=== PATIENT | female | born 1955 | race Caucasian/White ===

== ENCOUNTER 2019-08-15 15:14 | Inpatient (IN) ==
[2019-08-15] MEDS ORDERED: SODIUM CHLORIDE 0.9% 1000ML 1,000 ML IV SCH (15:45)
[2019-08-15 16:28] LABS: Basophils # (auto) 0.03 K/uL (0-0.2); Basophils % (auto) 0.3 %; Eosinophils # (auto) 0.15 K/uL (0-0.5); Eosinophils % (auto) 1.3 %; Hematocrit (blood only) 41.3 % (37-47); Hemoglobin 13.6 g/dL (12.0-16.0); Immature Granulocytes # (auto) 0.04 K/uL (0.00-0.02); Immature Granulocytes % (auto) 0.4 %; Lymphocytes # (auto) 0.77 K/uL (1.2-3.4); Lymphocytes % (auto) 6.7 %; Mean Corpuscular Hemoglobin 32.3 pg (25-34); Mean Corpuscular Hgb Conc 32.9 g/dL (32-36); Mean Corpuscular Volume 98.1 fL (80-100); Mean Platelet Volume 11.9 fL (7.4-10.4); Monocytes # (auto) 0.62 K/uL (0.11-0.59); Monocytes % (auto) 5.4 %; Neutrophils % (auto) 85.9 %; Platelet Count 192 K/uL (130-400); RDW Coefficient of Variation 14.1 % (11.5-14.5); RDW Standard Deviation 50.6 fL (36.4-46.3); Red Blood Count 4.21 M/uL (4.2-5.4); White Blood Count 11.41 K/uL (4.8-10.8)
--- NOTE | 2019-08-15 16:53 | Emergency Department Note ---
History of Present Illness General Chief complaint: Abnormal Labs/Diagnostic Testing Stated complaint: ABNORMAL LAB, UNABLE TO AMBULATE Time Seen by Provider: 08/15/19 15:41 Source: patient and RN notes reviewed Mode of arrival: EMS Limitations: altered mental status History of Present Illness Provider complaint: Acute renal failure This is a 63-year-old female who presents to the ED with a chief complaint of elevated creatinine. The patient was sent from the [facility]. She was reportedly discharged from the [facility] from a psychiatric standpoint today. The patient was transported here by ambulance as the patient was found to have acute renal failure with a creatinine of 3.94. This blood work was done yesterday. The patient's BUN was 91 yesterday. On the fourth of this month, 13 days ago, the patient's BUN was 40 and creatinine was 1.27. The patient was at the [facility] and was taking Risperdal, Depakote and atorvastatin. She does have a psych history as well as history of hypertension and dyslipidemia. The patient is confused on my exam. She was unable to provide any history. The patient does not even know where she lives. Home Medications Home Medications Medication Instructions Recorded Confirmed Type atorvastatin 20 mg PO HS 08/15/19 08/15/19 History divalproex [Depakote] 500 mg PO BID 08/15/19 08/15/19 History risperidone [Risperdal] 1 mg PO BID 08/15/19 08/15/19 History risperidone [Risperdal] 2 mg PO HS 08/15/19 08/15/19 History Allergies Allergy/AdvReac Type Severity Reaction Status Date / Time RED DYE Allergy Unknown Uncoded 08/15/19 16:48 Past Med/Surg History Social History Feels Safe at Home: Yes Smoking Status: Never smoker Review of Systems Unobtainable due to cognitive status Physical Exam Vital Signs Vital Signs - 24 hr 08/15/19 15:18 08/15/19 16:03 Temperature 36.3 C L Temperature Source Oral Pulse Rate 84 Respiratory Rate 18 Respiratory Effort / Characteristics Non-Labored Respiratory Depth Normal Blood Pressure 122/45 L Blood Pressure Mean 70 Blood Pressure Position Lying Pulse Oximetry 98 Oxygen Delivery Method Room Air Room Air Sepsis Recent Fever Within 48 Hours No Sepsis Action Taken by Nursing No Action Required CONSTITUTIONAL/VITAL SIGNS: Reviewed / noted above. GENERAL: Non-toxic in appearance. No acute distress. INTEGUMENTARY: Warm, dry, and Horatio. HEAD: Normocephalic. EYES: without scleral icterus or trauma. ENT/OROPHARYNX: clear and moist. LYMPHADENOPATHY/NECK: Is supple without lymphadenopathy or meningismus. RESPIRATORY: Lungs clear and equal. CARDIOVASCULAR: Regular rate and rhythm. GI/ABDOMEN: Soft and nontender. No organomegaly or pulsatile mass. No rebound or guarding. Normal bowel sounds. EXTREMITIES: Warm and well perfused. BACK: No CVA tenderness. NEUROLOGICAL: The patient is confused and does not follow commands. She is unable to answer basic questions or provide any history. She does move all 4 extremities. PSYCHIATRIC: normal affect. MUSCULOSKELETAL: Normally developed with good muscle tone. TRIAGE NURSING DOCUMENTATION REVIEWED. Course Administered Medications Discontinued Medications Sodium Chloride (Nss 1000ml) 1,000 mls @ 999 mls/hr IV .Q1H1M BIRGIT Stop: 08/15/19 16:45 Last Admin: 08/15/19 16:12 Dose: 999 mls/hr Documented by: [id number] Medical Decision Making Differential Diagnosis Differential includes acute coronary syndrome, myocardial infarction, CVA, TIA, anemia, infection, pneumonia, UTI, pyelonephritis, poor nutrition, dehydration, electrolyte disturbance,hypoglycemia. Medical Records Attestation: I reviewed the patient's medical records. Home Medications Current Medication List: was personally reviewed by me Laboratory Data Attestation: I reviewed the patient's lab results. Result diagrams: 08/15/19 16:11 08/15/19 16:11 Lab Results 08/15/19 08/15/19 08/15/19 Range/Units 16:11 16:11 16:11 WBC 11.41 H (4.8-10.8) K/uL RBC 4.21 (4.2-5.4) M/uL Hgb 13.6 (12.0-16.0) g/dL Hct 41.3 (37-47) % MCV 98.1 (80-100) fL MCH 32.3 (25-34) pg MCHC 32.9 (32-36) g/dL RDW Std Deviation 50.6 H (36.4-46.3) fL RDW Coeff of Phillip 14.1 (11.5-14.5) % Plt Count 192 (130-400) K/uL MPV 11.9 H (7.4-10.4) fL Immature Gran % (Auto) 0.4 % Neut % (Auto) 85.9 % Lymph % (Auto) 6.7 % Rabun % (Auto) 5.4 % Eos % (Auto) 1.3 % Baso % (Auto) 0.3 % Immature Gran # (Auto) 0.04 H (0.00-0.02) K/uL Neut # (Auto) 9.80 H (1.4-6.5) K/uL Lymph # (Auto) 0.77 L (1.2-3.4) K/uL Rabun # (Auto) 0.62 H (0.11-0.59) K/uL Eos # (Auto) 0.15 (0-0.5) K/uL Baso # (Auto) 0.03 (0-0.2) K/uL Sodium 144 (136-145) mmol/L Potassium 4.1 (3.5-5.1) mmol/L Chloride 111 H (98-107) mmol/L Carbon Dioxide 25 (21-32) mmol/L Anion Gap 8.0 (3-11) BUN 115 H (7-18) mg/dl Creatinine 4.82 H* (0.6-1.2) mg/dl Est Cr Clr Drug Dosing Not Reportable Est GFR ( Amer) 10.4 Est GFR (Non-Af Amer) 9.0 BUN/Creatinine Ratio 23.9 H (10-20) Glucose 100 H (70-99) mg/dl Calcium 10.8 H (8.5-10.1) mg/dl Magnesium 2.6 H (1.8-2.4) mg/dl Total Bilirubin 0.4 (0.2-1) mg/dl AST 17 (15-37) U/L ALT 35 (12-78) U/L Alkaline Phosphatase 161 H (45-117) U/L Total Creatine Kinase 55 (26-192) U/L Total Protein 7.5 (6.4-8.2) gm/dl Albumin 3.7 (3.4-5.0) gm/dl Globulin 3.8 (2.5-4.0) gm/dl Albumin/Globulin Ratio 1.0 (0.9-2) TSH 3.210 (0.300-4.500) uIu/ml Valproic Acid 41 L (50-100) mcg/ml Imaging Data Attestation: I personally reviewed and interpreted this imaging study as follows: My Impression: CT scan of the brain was negative for acute intracranial bleed. Chest x-ray: No acute disease Radiologist's Impression: CT scan of the brain:1. Linear lytic defect of the right temporal fossa. 2. Study is brain is otherwise unremarkable. ECG Data Attestation: I personally reviewed and interpreted this ECG as follows: Indication: + weakness Rate (beats per minute): 73 Rhythm: + normal sinus ECG Intervals/blocks: + Normal QT-c; no Prolonged QT ECG ST segments: no ST elevation ECG Findings: no PVCs Blood Pressure Blood Pressure Findings: Normal blood pressure MDM Narrative This is a 63-year-old female who presents to the ED with a chief complaint of elevated creatinine. The patient was sent from the [facility]. She was reportedly discharged from the [facility] from a psychiatric standpoint today. The patient was transported here by ambulance as the patient was found to have acute renal failure with a creatinine of 3.94. This blood work was done yesterday. The patient's BUN was 91 yesterday. On the fourth of this month, 13 days ago, the patient's BUN was 40 and creatinine was 1.27. The patient was at the [facility] and was taking Risperdal, Depakote and atorvastatin. She does have a psych history as well as history of hypertension and dyslipidemia. The patient is confused on my exam. She was unable to provide any history. The patient does not even know where she lives. The patient's BUN today is 115 with a creatinine of 4 0.82. CBC is unremarkable. EKG shows normal sinus rhythm. Depakote le diane is slightly subtherapeutic at 41. Cardiac monitoring: An order was placed for continuous cardiac monitoring. The monitor shows a rate of normal sinus rhythm with 80 rhythm. Impression & Plan Acute uremia, Acute renal failure (ARF), AMS (altered mental status) Discharge Plan Visit Data Chief Complaint: Abnormal Labs/Diagnostic Testing Stated Complaint: ABNORMAL LAB, UNABLE TO AMBULATE ED Provider: Rogerio Caro Discharge Problem: Acute uremia, Acute renal failure (ARF), AMS (altered mental status) Patient Disposition: Admitted As Inpatient Forms Stand Alone Forms: [facility] Prescriptions Prescriptions: No Action atorvastatin 20 mg Tablet 20 mg PO HS RF: 0 divalproex [Depakote] 500 mg Tablet,Delayed Release (Dr/Ec) 500 mg PO BID RF: 0 risperidone [Risperdal] 2 mg Tablet 2 mg PO HS RF: 0 risperidone [Risperdal] 1 mg Tablet 1 mg PO BID RF: 0 Referrals Referrals: Pooja Acevedo MD [Primary Care Provider] - Discharge Problem: Acute renal failure (ARF) Qualifiers: Acute renal failure type: unspecified Qualified Code(s): N17.9 - Acute kidney failure, unspecified AMS (altered mental status) Qualifiers: Altered mental status type: disorientation Qualified Code(s): R41.0 - Disorientation, unspecified
[2019-08-15 17:04] LABS: Alanine Aminotransferase 35 U/L (12-78); Albumin Level 3.7 gm/dl (3.4-5.0); Alkaline Phosphatase 161 U/L (45-117); Aspartate Aminotransferase 17 U/L (15-37); BUN Creatinine Ratio 23.9 (10-20); Bilirubin,Total 0.4 mg/dl (0.2-1); Blood Urea Nitrogen 115 mg/dl (7-18); Calcium 10.8 mg/dl (8.5-10.1); Carbon Dioxide 25 mmol/L (21-32); Chloride 111 mmol/L (98-107); Creatine Kinase 55 U/L (26-192); Est GFR (African American) 10.4; Globulin 3.8 gm/dl (2.5-4.0); Glucose 100 mg/dl (70-99); Magnesium 2.6 mg/dl (1.8-2.4); Potassium 4.1 mmol/L (3.5-5.1); Sodium 144 mmol/L (136-145); Total Protein 7.5 gm/dl (6.4-8.2)
--- NOTE | 2019-08-15 17:17 | Electrocardiogram Report ---
Test Reason : Blood Pressure : / mmHG Vent. Rate : 073 BPM Atrial Rate : 073 BPM P-R Int : 148 ms QRS Dur : 092 ms QT Int : 394 ms P-R-T Axes : 059 022 046 degrees QTc Int : 434 ms Poor data quality, interpretation may be adversely affected Normal sinus rhythm Abnormal ECG No previous ECGs available Confirmed by Regan Salazar ([id number]) on 08/15/2019 5:17:01 PM Referred By: REFERRED SELF Confirmed By:Moo Salazar
--- NOTE | 2019-08-15 17:21 | CT Scan Report ---
CT head/brain wo con CT DOSE: 614.27 mGy.cm HISTORY: Mental status change confusion TECHNIQUE: Multiaxial CT images of the head were performed without the use of intravenous contrast. A dose lowering technique was utilized adhering to the principles of ALARA. Comparison: None. Findings: Possible small lytic defect base of the right temporal fossa. No additional bony abnormalit ies are appreciated. This defect measures approximately 2 x 1.0 cm. The calvarium and skull base are intact. The ventricle s and sulci are within normal limits. There is no mass, hematoma, midline shift, or acute infarct. Impression: 1. Linear lytic defect of the right temporal fossa. 2. Study is brain is otherwise unremarkable. 3. An MRI of the brain and skull base is suggested as follow-up when the patient is capable of tolera ting the procedure. ACT 112: Negative or not required by law. The above report was generated using voice recognition software. It may contain grammatical, syntax or spelling errors. Electronically signed by: Timothy Jaffe M.D. 08/15/2019 5:19 PM
--- NOTE | 2019-08-15 17:33 | History & Physical Report ---
Date of Service August 15, 2019 Assessment & Plan (1) Acute renal failure (ARF): Patient is laboratories applied by the [facility] suggest this is acute renal failure however the fact that her potassium is not elevated, and her bicarbonate is also normal status is may be more chronic in nature. Patient will be hydrated with saline a renal ultrasound will be obtained for obstruction and evaluation of the appearance of her renal cortices and a urine analysis will be obtained to look for active sediment. We will check laboratories and once we collect more information we will likely have a renal consult. (2) AMS (altered mental status): Encephalopathy of undetermined cause whether metabolic or toxic. Possible Toxic Vs. Metabolic encephalopathy Patient's Depakote level is low so this is not toxicity from that urine tox screen will be sent there is a linear opacity seen the base of her temporal skull on CT scan of the brain MRI scan will be undertaken also will for areas of stroke etc. We will hold her Risperdal but have Haldol and Ativan supplied for behavior control if needed Patient has a elevated calcium on presentation however this might be related to her dehydration. We will check an ionized calcium and a parathyroid hormone and hydrate her rechecking calcium in the morning (3) Abnormal EKG: Patient is a sinus rhythm with diffuse T wave changes she has no correlating clinical symptoms. She be monitored in telemetry, troponin be checked in the morning, as well as an EKG. We have no records for comparison (4) Hypertension: Patient has hypertension listed as noted for past history but is on no medications for this, on presentation her blood pressure is normotensive (5) Dyslipidemia: Patient typically takes atorvastatin which will be held (6) Psychiatric disorder: Patient be maintained on her Depakote Risperdal be held (7) DVT prophylaxis: DVT prevention will be Lovenox therapy at this time History of Present Illness Primary Care Provider: Pooja Acevedo MD This is a 63-year-old female who was discharged to [facility] to our facility with altered sensorium and acute renal failure. We have very little records on this patient she is not oriented to place she cannot tell us where she lives. Or according to records from the [facility] and was taking Rispe rdal, Depakote and atorvastatin. She does have a psych history as well as history of hypertension and dyslipidemia. Patient was recommended for admission for encephalopathy and acute renal failure. Her valproic acid level on admission was low, there does not appear to be a talk screen sent On evaluation in the ER the patient currently tell me she is from [facility] she cannot tell me her age or birthday she denies having her children's names she did not supply any information about her past health history Allergies Allergy/AdvReac Type Severity Reaction Status Date / Time RED DYE Allergy Unknown Uncoded 08/15/19 16:48 Home Medications Home Medications Medication Instructions Recorded Confirmed Type atorvastatin 20 mg PO HS 08/15/19 08/15/19 History divalproex [Depakote] 500 mg PO BID 08/15/19 08/15/19 History risperidone [Risperdal] 1 mg PO BID 08/15/19 08/15/19 History risperidone [Risperdal] 2 mg PO HS 08/15/19 08/15/19 History Past Med/Surg History Social History Preferred Language: Maori Communication Ability Comment: Pt oriented to self only, unable to determine reading/writing 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 Beliefs That Will Affect Care: None Feels Safe at Home: Yes Smoking Status: Never smoker Review of Systems Review of Systems: This review of systems is clouded by the patient's confusion however she did deny any physical ailments on questioning She appears to be an mild distress and fatigued no headache, blurry or double vision no speech or swallowing issues no chest pain, pressure or palpitations no shortness of breath, cough or wheezes no abdominal pain, nausea or vomiting, diarrhea or constipation no dysuria, hematuria or frequency no focal joint pain or swelling no back pain, CVA tenderness or radicular pain no bruising, bleeding or rashes no focal signs of weakness or numbness or altered sensation no complaints or anxiety or depression. Physical Exam Physical Exam: The patient appeared well nourished and normally developed. She is confused and has mumbling speech Vital signs as documented. Head exam is normocephalic atraumatic no scleral icterus PERRLA EOMI Neck is without JVD, thyromegaly, or carotid bruits. Lungs are clear to auscultation, no focal loss of breath sounds Cardiac exam, Rhythm is regular.. No murmurs, rubs or gallops. Abdominal exam reveals normal bowel sounds, soft non tender, no masses Extremities are nonedematous and both pedal pulses are normal. Neurologic exam is alert and oriented x1 can only know her name, no focal loss of strength or sensation she responds to neurological confrontational testing appropriately she has no focal loss of strength she has no tremor Skin is without bruises or rashes Results & Data Results & Data ([facility]) Vital Signs (Past 12 Hours) Vital Signs Temp Pulse Resp BP Pulse Ox 08/15/19 15:18 97.3 F L 84 18 122/45 L 98 PG Care Time/CCT Total # of Minutes Spent Total Time Spent with Patient: Total time spent is greater than 50% in coordination of care (as documented) at patient's floor/unit and/or counseling patient: Coding Level of Care Code 88024 Initial Inpt Care Lvl 3 Diagnoses Acute renal failure (ARF) N17.9 Acute renal failure type: unspecified AMS (altered mental status) R41.0 Altered mental status type: disorientation Abnormal EKG R94.31 Hypertension I10 Dyslipidemia E78.5 Psychiatric disorder F99 DVT prophylaxis Z29.9 (1) Acute renal failure (ARF) Acute renal failure type: unspecified Qualified Code(s): N17.9 - Acute kidney failure, unspecified (2) AMS (altered mental status) Altered mental status type: disorientation Qualified Code(s): R41.0 - Disorientation, unspecified
--- NOTE | 2019-08-15 18:16 | XRay Report ---
XR chest 1V portable CLINICAL HISTORY: arf dyspnea COMPARISON STUDY: None FINDINGS: The bones soft tissues and hemidiaphragms are normal. The cardiomediastinal silhouette is n ormal. The lungs are clear. The pulmonary vasculature is normal. IMPRESSION: Negative chest. ACT 112: Negative or not required by law. The above report was generated using voice recognition software. It may contain grammatical, syntax or spelling errors. Electronically signed by: Timothy Jaffe M.D. 08/15/2019 6:15 PM
[2019-08-15] MEDS ORDERED: ONDANSETRON INJ 2 MG/ML 2 ML VIAL IV PRN (19:04)
[2019-08-15] MEDS ORDERED: ENOXAPARIN INJ 40 MG/0.4 ML SYR SQ SCH (19:04)
[2019-08-15] MEDS ORDERED: HALOPERIDOL LACTATE 5 MG/ML 1 ML VIAL IV PRN (19:04)
[2019-08-15] MEDS ORDERED: ACETAMINOPHEN 325 MG TAB PO PRN (19:04)
[2019-08-15] MEDS ORDERED: LORazepam 0.5 MG/1 ML VIAL IV PRN (19:04)
[2019-08-15] MEDS: SODIUM CHLORIDE 0.9% 1000ML 1,000 ML IV SCH (19:45)
[2019-08-15] MEDS: HEPARIN SOD 5,000 UNIT/0.5 ML VIAL SQ SCH (20:50)
--- NOTE | 2019-08-15 20:50 | Communication Note ---
Date of Service: August 15, 2019 Per pharmacy, Lovenox switched to heparin Resident Activity Tracking Resident Involvement: [place] Operator Coverage Note Care Provided: Adult Hospital Medicine
[2019-08-15] MEDS: DIVALPROEX DELAY RELEASE 500 MG TAB PO SCH (20:51)
[2019-08-16] MEDS: SODIUM CHLORIDE 0.9% 1000ML 1,000 ML IV SCH ×3 (02:46→20:38)
[2019-08-16 06:57] LABS: BUN Creatinine Ratio 39.6 (10-20); Blood Urea Nitrogen 95 mg/dl (7-18); Calcium 10.2 mg/dl (8.5-10.1); Carbon Dioxide 23 mmol/L (21-32); Chloride 118 mmol/L (98-107); Est GFR (African American) 24.4; Glucose 94 mg/dl (70-99); Potassium 3.8 mmol/L (3.5-5.1); Sodium 149 mmol/L (136-145)
[2019-08-16 07:01] LABS: Troponin I < 0.015 ng/ml (0-0.045)
[2019-08-16] MEDS: DIVALPROEX DELAY RELEASE 500 MG TAB PO SCH ×2 (08:28→09:22)
[2019-08-16] MEDS: HEPARIN SOD 5,000 UNIT/0.5 ML VIAL SQ SCH ×3 (08:29→20:38)
[2019-08-16] MEDS: VALPROATE SOD 500 MG in DEXTROSE 5% 50 ML IV SCH ×2 (10:37→20:38)
[2019-08-16 11:51] LABS: Appearance Urine Clear (Clear); Bilirubin Urine Negative (Negative); Blood Urine Negative (Negative); Color Urine Yellow; Glucose Urine UA Negative (Negative); Ketones Urine Negative (Negative); Leukocyte Esterase Urine Negative (Negative); Nitrite Urine Negative (Negative); Protein Urine Negative (Negative); Specific Gravity Urine 1.016 (1.000-1.030); Urobilinogen Urine Negative (Negative); pH Urine 5.5 (4.5-7.5)
--- NOTE | 2019-08-16 13:25 | Hospitalist Progress Note ---
Date of Service August 16, 2019 Assessment & Plan (1) Acute renal failure (ARF): likely acute on chronic renal failure unknown stage, Patient continues to be hydrated with saline renal ultrasound pending to rule out obstruction urine analysis without active sediment. (2) AMS (altered mental status): Encephalopathy of undetermined cause whether metabolic or toxic. Possible Toxic Vs. Metabolic encephalopathy Patient's Depakote level is low so this is not toxicity from urine tox screen linear opacity seen the base of her temporal skull on CT scan of the brain MRI scan will be undertaken also will for areas of stroke etc. continues to hold her Risperdal but have Haldol and Ativan supplied for behavior control if needed Psychiatric consult (3) Abnormal EKG: Patient is a sinus rhythm with diffuse T wave changes she has no correlating clinical symptoms. she has had no arrythmia and repeat troponin is normal (4) Hypertension: Patient has hypertension listed as noted for past history but is on no medications for this, on presentation her blood pressure is normotensive (5) Dyslipidemia: Patient typically takes atorvastatin which will be held (6) Psychiatric disorder: Patient be maintained on her Depakote Risperdal be held (7) DVT prophylaxis: DVT prevention will be heparin due to renal dysfunction Admission and Anticipated Discharge Date Admission Date: August 15, 2019 Subjective this pt seemed much more awake and alert but not oriented to place or time, acting non sensical, mild improvement in her renal function Review of Systems Review of Systems: This review of systems remains clouded by the patient's confusion however she did deny any physical ailments on questioning She appears to be an mild distress and fatigued no headache, blurry or double vision no speech or swallowing issues no chest pain, pressure or palpitations no shortness of breath, cough or wheezes no abdominal pain, nausea or vomiting, diarrhea or constipation no dysuria, hematuria or frequency no focal joint pain or swelling no back pain, CVA tenderness or radicular pain no bruising, bleeding or rashes no focal signs of weakness or numbness or altered sensation no complaints or anxiety or depression. Physical Exam Physical Exam: The patient appeared well nourished and normally developed. She is confused and has more clear speech Vital signs as documented. Head exam is normocephalic atraumatic no scleral icterus PERRLA EOMI Neck is without JVD, thyromegaly, or carotid bruits. Lungs are clear to auscultation, no focal loss of breath sounds Cardiac exam, Rhythm is regular.. No murmurs, rubs or gallops. Abdominal exam reveals normal bowel sounds, soft non tender, no masses Extremities are nonedematous and both pedal pulses are normal. Neurologic exam is alert and oriented x1 can only know her name, no focal loss of strength or sensation she responds to neurological confrontational testing appropriately she has no focal loss of strength she has no tremor Skin is without bruises or rashes Results & Data Results & Data ([facility]) Vital Signs (Past 12 Hours) Vital Signs Temp Pulse Resp BP BP Pulse Ox 08/16/19 12:43 98.1 F 72 18 145/71 H 94 08/16/19 07:20 98.4 F 72 18 144/63 H 99 08/16/19 03:58 97.9 F 84 16 162/66 H 100 PG Care Time/CCT Total # of Minutes Spent Total Time Spent with Patient: Total time spent is greater than 50% in coordination of care (as documented) at patient's floor/unit and/or counseling patient: Coding Level of Care Code 17484 Subseq Hosp Care Lvl 2 Diagnoses Acute renal failure (ARF) N17.9 Acute renal failure type: unspecified AMS (altered mental status) R41.0 Altered mental status type: disorientation Abnormal EKG R94.31 Hypertension I10 Dyslipidemia E78.5 Psychiatric disorder F99 DVT prophylaxis Z29.9 (1) Acute renal failure (ARF) Acute renal failure type: unspecified Qualified Code(s): N17.9 - Acute kidney failure, unspecified (2) AMS (altered mental status) Altered mental status type: disorientation Qualified Code(s): R41.0 - Disorientation, unspecified
--- NOTE | 2019-08-16 13:29 | Psychiatric Consultation ---
Date of Consultation August 16, 2019 Impression / Recommendations Impression DrSharifa [Sean Nagy] was directly involved in review and discussion of the patient's case and participated in medical decision making regarding treatment recommendations. RECOMMENDATIONS: 08/15 - Psych History Chief Complaint "[]". Allergies Allergy/AdvReac Type Severity Reaction Status Date / Time RED DYE Allergy Unknown Uncoded 08/15/19 16:48 Home Medications Home Medications Medication Instructions Recorded Confirmed Type atorvastatin 20 mg PO HS 08/15/19 08/15/19 History divalproex [Depakote] 500 mg PO BID 08/15/19 08/15/19 History risperidone [Risperdal] 1 mg PO BID 08/15/19 08/15/19 History risperidone [Risperdal] 2 mg PO HS 08/15/19 08/15/19 History Personal History Beliefs That Will Affect Care: None Patient History Social History Preferred Language: Burmese Communication Ability Comment: Pt oriented to self only, unable to determine reading/writing 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 Beliefs That Will Affect Care: None Feels Safe at Home: Yes Smoking Status: Never smoker Physical Exam Vital Signs (Past 24 Hours): Last Vital Signs Temp 36.7 C 08/16/19 12:43 Pulse 72 08/16/19 12:43 Resp 18 08/16/19 12:43 BP 145/71 H 08/16/19 12:43 Pulse Ox 94 08/16/19 12:43 Results & Data ([facility]) Medications Administered Heparin Sodium (Porcine) (Heparin Sodium (Porcine)) 5,000 units SQ TID [facility] Stop: 09/14/19 20:59 Last Admin: 08/16/19 08:29 Dose: 5,000 units Documented by: [id number] Cosigned by: [id number] Admin: 08/15/19 20:50 Dose: 5,000 units Documented by: [id number] Cosigned by: [id number] Sodium Chloride (Nss 1000ml) 1,000 mls @ 125 mls/hr IV .Q8H [facility] Stop: 09/14/19 19:03 Last Admin: 08/16/19 11:48 Dose: 125 mls/hr Documented by: [id number] Infusion: 08/16/19 10:37 Dose: 0 mls/hr Documented by: [id number] Admin: 08/16/19 02:46 Dose: 125 mls/hr Documented by: [id number] Infusion: 08/16/19 02:46 Dose: 125 mls/hr Documented by: [id number] Admin: 08/15/19 19:45 Dose: 125 mls/hr Documented by: [id number] Valproic Acid 500 mg/ Dextrose 55 mls @ 55 mls/hr IV BID BIRGIT Stop: 09/15/19 10:14 Last Infusion: 08/16/19 11:48 Dose: 0 mls/hr Documented by: [id number] Admin: 08/16/19 10:37 Dose: 55 mls/hr Documented by: [id number] Coding
[2019-08-16 14:39] LABS: Amphetamines+Metham, Urine Neg (Neg); Barbiturates, Urine Neg (Neg); Benzodiazepine, Urine Neg (Neg); Cocaine, Urine Neg (Neg); MDMA (Ecstacy), Urine Neg (Neg); Methadone, Urine Neg (Neg); Opiate, Urine Neg (Neg); Phencyclidine, Urine Neg (Neg)
--- NOTE | 2019-08-16 14:47 | Communication Note ---
Date of Service: August 16, 2019 63-year-old female admitted medically on Patient's case was reviewed with primary team and supervising physician at time of consultation. Pt was reportedly disorganized and incoherent this morning, unable to provide reliable history. Medical/psychiatric records were requested from the [facility] and patient's was called by our psychiatric nurse liaison to gather collateral information. See nurse liaison note for specific details of the conversation. It was reported that patient had been hospitalized at the [facility] for ~12 days just prior to this medical admission, and was reportedly discharged from their facility but then brought to the ED at [facility] on their drive home as patient continued to demonstrate altered mental status beyond usual baseline. The reported a history a dementia with decompensation over the past 5 years. It was reported that a more significant decline was observed in the past 5 months with recent decrease in ability to attend to ADLs. reported the patient had a trial of Aricept, which he believed contributed to increased aggression and took the patient to their local hospital when he noticed she was not eating or caring for herself. Discharge medications from the [facility] include: risperidone 1mg qAM and 3mg qHS as well as valproic acid 500mg BID. Per 's report, patient has no psychiatric history and no outpatient psychiatric providers. He reports only pending neurological studies for further dementia work-up. At time of attempted assessment, patient is observed to be sleeping soundly and does not arouse to verbal stimuli. As patient was reported disoriented this morning and unable to participate in meaningful conversation, she was permitted to continue to sleep. At this time, we will focus our efforts on obtaining collateral information, with the primary focus being records from her stay at the [facility]. Pt is continuing to receive valproic acid IV, as she had refused PO option this morning. IV lorazepam and haloperidol were ordered as needed should patient demonstrate combative behavior placing her at risk of harm to self or staff. Risperidone is currently held due to AMS and refusal of offered medications, which seems appropriate at this time. We will provider further recommendations as additional information is gathered, but it does not seem that patient's presentation is consistent with a primary psychiatric condition. Rather, it appears patient's behavior may be related to a suspected dementia diagnosis in combination with likely encephalopathy. We will assist with behavioral support during her hospitalization, and please reach out with any questions or additional updates. Will attempt to assess patient when she is better able to participate with interaction. Dr. Sean Nagy was directly involved in review and discussion of the patient's case and participated in medical decision making regarding treatment recommendations.
--- NOTE | 2019-08-16 20:36 | Magnetic Resonance Report ---
MRI OF THE BRAIN WITHOUT IV CONTRAST CLINICAL HISTORY: Change in mental status. COMPARISON STUDY: CT of the brain dated 08/15/2019. TECHNIQUE: MRI of the brain was performed utilizing various T1 and T2-weighted sequences in the axial , sagittal, and coronal planes. IV contrast was not administered for this examination. FINDINGS: Brain parenchyma: The brain parenchyma is normal in appearance. There is no hemorrhage or mass effect . There is no restricted diffusion to suggest acute ischemia. Corbett-white matter differentiation is pr eserved. No extra-axial fluid collection is seen. The cerebellar tonsils are normal in configuration. Ventricles, sulci, and cisterns: Normal in configuration. Pituitary and sella: Unremarkable. Intracranial vasculature: Normal flow voids are maintained at the skull base. Orbits: The bony orbits are grossly intact. Orbital contents are normal in appearance. Sinuses and mastoids: Clear. Calvarium: Unremarkable. Cervical cord: Partially visualized cervical spinal cord is normal in morphology and signal intensity . IMPRESSION: 1. There is no acute intracranial abnormality. 2. No calvarial abnormality is identified. The CT finding of concern was likely artifactual. ACT 112: Negative or not required by law. Electronically signed by: Devan Angela M.D. 08/16/2019 8:34 PM
--- NOTE | 2019-08-16 20:41 | Ultrasound Report ---
ULTRASOUND KIDNEYS AND BLADDER CLINICAL HISTORY: Acute renal insufficiency. COMPARISON STUDY: No priors. TECHNIQUE: Real-time, grayscale, and color flow sonography of the kidneys and bladder is performed. I mages are reviewed in the transverse and longitudinal planes. The examination is degraded by lack of patient cooperation. FINDINGS: Kidneys: The kidneys are normal in size and echotexture. The right kidney measures 12.1 cm in length and the left kidney measures 9.6 cm in length. Suspect duplication of the right renal collecting syst em with dilatation of the lower pole calyces. The collecting systems are otherwise normal in appearan ce. No shadowing renal calculi are identified. A 2.8 cm cyst is noted in the left lower pole. There i s no sonographic evidence of contour deforming renal mass lesion. No perinephric fluid is identified. Bladder: The bladder is largely decompressed and grossly normal in appearance. Ureteral jets were not seen. IMPRESSION: 1. The kidneys are normal in size. 2. Suspect duplication of the right renal collecting system with dilatation of the lower pole calyces . 3. The bladder was decompressed and grossly unremarkable. ACT 112: Negative or not required by law. Electronically signed by: Devan Angela M.D. 08/16/2019 8:39 PM
[2019-08-17] MEDS: SODIUM CHLORIDE 0.9% 1000ML 1,000 ML IV SCH (05:19)
[2019-08-17 07:38] LABS: Hematocrit (blood only) 33.4 % (37-47); Hemoglobin 11.2 g/dL (12.0-16.0); Mean Corpuscular Hgb Conc 33.5 g/dL (32-36); Mean Corpuscular Volume 95.4 fL (80-100); Platelet Count 165 K/uL (130-400); RDW Coefficient of Variation 13.9 % (11.5-14.5); RDW Standard Deviation 49.2 fL (36.4-46.3); White Blood Count 7.31 K/uL (4.8-10.8)
[2019-08-17 08:19] LABS: BUN Creatinine Ratio 31.9 (10-20); Blood Urea Nitrogen 36 mg/dl (7-18); Calcium 9.2 mg/dl (8.5-10.1); Carbon Dioxide 25 mmol/L (21-32); Chloride 120 mmol/L (98-107); Est GFR (African American) 60.3; Glucose 84 mg/dl (70-99); Potassium 3.3 mmol/L (3.5-5.1); Sodium 149 mmol/L (136-145)
[2019-08-17] MEDS: SODIUM CHLORIDE 0.45 % 1,000 ML IV SCH ×3 (08:39→23:43)
[2019-08-17] MEDS: VALPROATE SOD 500 MG in DEXTROSE 5% 50 ML IV SCH ×2 (08:40→21:47)
[2019-08-17] MEDS: HEPARIN SOD 5,000 UNIT/0.5 ML VIAL SQ SCH ×3 (08:40→21:47)
[2019-08-17] MEDS: risperiDONE 1 MG TABLET PO SCH ×2 (08:44→12:53)
--- NOTE | 2019-08-17 11:48 | Psychiatric Consultation ---
Date of Consultation August 17, 2019 Impression / Recommendations Impression Dr. Ana Laura Barker was directly involved in review and discussion of the patient's case and participated in medical decision making regarding treatment recommendations. RECOMMENDATIONS: 08/16 - According to history obtained from and records received from the [facility], it appears patient has a primary dementing process with documented plans for further outpatient work-up per PCP. - Although patient remains disoriented, she has not been combative or aggressive at this time at our facility. Prn medications have been available should patient become combative or agitated. - Case reviewed with hospitalist team - agree with holding risperidone until patient is more alert. Can consider 0.5mg TID dosing with an available prn dose of 0.5mg q4h prn for any agitation - this can be initiated when patient is less sedated. Advancing back to patient's home dose of 1mg qAM, 1mg @1300, and 2mg HS can be considered based on evaluation of patient's response and observe behavior. - Would suggest initiation of conversation with /family regarding discharge planning - as patient's presentation is suggested to be behavioral changes related to primary dementing process. Cognitive decline has reportedly been noticed for the past 5 years, with more progressive decompensation in the last 5 months. It would be beneficial to explore family's wishes regarding placement or ability to care for patient at home, if this should be indicated. - Please reach out to our service with any additional questions or updates, we will continue to follow. Psych History Identifying Data 63-year-old female admitted medically on 08/15/2019 after presenting to the ED via EMS for altered mental status. Pt was reportedly discharged from the [facility], where she had been treated from 07/30/2019 - 08/15/2019 for behavioral changes, believed to be related to an underlying neurodegenerative disorder. Psychiatric consultation requested given reports of history of agitation and altered mental status s/p recent psychiatric hospitalization. Chief Complaint "What are you looking at?" History of Present Illness Information from initial psychiatric communication note on 08/16/2019: 63-year-old female admitted medically on Patient's case was reviewed with primary team and supervising physician at time of consultation. Pt was reportedly disorganized and incoherent this morning, unable to provide reliable history. Medical/psychiatric records were requested from the [facility] and patient's was called by our psychiatric nurse liaison to gather collateral information. See nurse liaison note for specific details of the conversation. It was reported that patient had been hospitalized at the [facility] for ~12 days just prior to this medical admission, and was reportedly discharged from their facility but then brought to the ED at [facility] on their drive home as patient continued to demonstrate altered mental status beyond usual baseline. The reported a history a dementia with decompensation over the past 5 years. It was reported that a more significant decline was observed in the past 5 months with recent decrease in ability to attend to ADLs. reported the patient had a trial of Aricept, which he believed contributed to increased aggression and took the patient to their local hospital when he noticed she was not eating or caring for herself. Discharge medications from the [facility] include: risperidone 1mg qAM and 3mg qHS as well as valproic acid 500mg BID. Per 's report, patient has no psychiatric history and no outpatient psychiatric providers. He reports only pending neurological studies for further dementia work-up. At time of attempted assessment, patient is observed to be sleeping soundly and does not arouse to verbal stimuli. As patient was reported disoriented this morning and unable to participate in meaningful conversation, she was permitted to continue to sleep. At this time, we will focus our efforts on obtaining collateral information, with the primary focus being records from her stay at the [facility]. Pt is continuing to receive valproic acid IV, as she had refused PO option this morning. IV lorazepam and haloperidol were ordered as needed should patient demonstrate combative behavior placing her at risk of harm to self or staff. Risperidone is currently held due to AMS and refusal of offered medications, which seems appropriate at this time. We will provider further recommendations as additional information is gathered, but it does not seem that patient's presentation is consistent with a primary psychiatric condition. Rather, it appears patient's behavior may be related to a suspected dementia diagnosis in combination with likely encephalopathy. We will assist with behavioral support during her hospitalization, and please reach out with any questions or additional updates. Will attempt to assess patient when she is better able to participate with interaction. During today's encounter, with this provider accompanied by psychiatric nurse liaison, the patient was observed to be sleeping soundly. 1:1 at bedside, having been with the patient for the past hour. Report was given that patient has been sleeping most of the morning. When she is awake, she has difficulty following commands. She does respond to some questions appropriately, but continues to be disorganized. This provider attempted to speak with the patient to conduct psychiatric assessment. Pt did arouse to verbal stimuli, but was not able to maintain attention. She did move her hands in front of her and look at that region, as if fixated on something she believed she was holding. This provider inquired "what is it you're looking at?" and patient stated "what are you looking at?" and then fell asleep again. Pt continues to be unable to participate in meaningful encounter at this time. Past Psychiatric History Current Psychiatric Diagnosis: None; behavioral/mood change reportedly related to neurodegerative d/o Previous Psych Admissions: Was admitted to the [facility] from 07/30/2019 - 08/15/2019. Past Medication Trials: Per [facility] Records: 1. [place] - elevated serum creatinine 2. Depakote 3. Celexa 4. Risperdal 5. Aricept Allergies Allergy/AdvReac Type Severity Reaction Status Date / Time RED DYE Allergy Unknown Uncoded 08/15/19 16:48 Home Medications Home Medications Medication Instructions Recorded Confirmed Type atorvastatin 20 mg PO HS 08/15/19 08/15/19 History divalproex [Depakote] 500 mg PO BID 08/15/19 08/15/19 History risperidone [Risperdal] 1 mg PO BID 08/15/19 08/15/19 History risperidone [Risperdal] 2 mg PO HS 08/15/19 08/15/19 History Family History No known family history of psychiatric conditions per patient's . Substance Abuse History No known concerns related to substance abuse, patient unable to provide any information on this topic. 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 ) Marital Status: (to of 40 years) Number Of Children: 2 adult children; one son and one daughter Patient History Social History Preferred Language: Fijian Communication Ability Comment: Pt oriented to self only, unable to determine reading/writing Manual Plate Filler Required: No Beliefs That Will Affect Care: None Feels Safe at Home: Yes Smoking Status: Never smoker Physical Exam Psychiatric: Orientation: + not alert (awakens to name, but unable to maintain attention for conversation) Apperance: appropriately groomed and appeared stated age Eye Contact: + poor eye contact Motor Behavior: no abnormal motor movements (sleeping in bed) Insight: + impaired insight Judgement: + impaired judgement Vital Signs (Past 24 Hours): Last Vital Signs Temp 37.0 C 08/17/19 07:15 Pulse 75 08/17/19 07:15 Resp 18 08/17/19 07:15 BP 146/65 H 08/17/19 07:15 Pulse Ox 99 08/17/19 07:15 Review of Systems Patient is rather sedated, unable to participate in productive conversation at this time. Unable to obtain full ROS, though patient does not verbalize any physical concerns. Results & Data (PSY) Medications Administered Heparin Sodium (Porcine) (Heparin Sodium (Porcine)) 5,000 units SQ TID BIRGIT Stop: 09/14/19 20:59 Last Admin: 08/17/19 08:40 Dose: 5,000 units Documented by: [id number] Cosigned by: [id number] Admin: 08/16/19 20:38 Dose: 5,000 units Documented by: [id number] Cosigned by: [id number] Admin: 08/16/19 14:29 Dose: 5,000 units Documented by: [id number] Cosigned by: [id number] Admin: 08/16/19 08:29 Dose: 5,000 units Documented by: [id number] Cosigned by: [id number] Admin: 08/15/19 20:50 Dose: 5,000 units Documented by: [id number] Cosigned by: [id number] Valproic Acid 500 mg/ Dextrose 55 mls @ 55 mls/hr IV BID BIRGIT Stop: 09/15/19 10:14 Last Infusion: 08/17/19 09:34 Dose: 0 mls/hr Documented by: [id number] Admin: 08/17/19 08:40 Dose: 55 mls/hr Documented by: [id number] Infusion: 08/16/19 21:50 Dose: 0 mls/hr Documented by: [id number] Admin: 08/16/19 20:38 Dose: 55 mls/hr Documented by: [id number] Infusion: 08/16/19 11:48 Dose: 0 mls/hr Documented by: [id number] Admin: 08/16/19 10:37 Dose: 55 mls/hr Documented by: [id number] Sodium Chloride (1/2 Nss) 1,000 mls @ 150 mls/hr IV .Q6H40M BIRGIT Stop: 09/16/19 08:14 Last Admin: 08/17/19 08:39 Dose: 150 mls/hr Documented by: [id number] Risperidone (Risperdal) 1 mg PO BID@0900,1300 [facility] Stop: 09/16/19 08:59 Last Admin: 08/17/19 08:44 Dose: 1 mg Documented by: [id number] Coding Level of Care Code 96174 [facility] Intl Hosp Care Lvl 1
--- NOTE | 2019-08-17 15:01 | Hospitalist Progress Note ---
Date of Service August 17, 2019 Assessment & Plan (1) Acute renal failure (ARF): likely acute on chronic renal failure unknown stage, Patient continues to be hydrated with hypernatremia and hypercholoremia change solution to 1/2 normal saline renal ultrasound pending to rule out obstruction urine analysis without active sediment. (2) AMS (altered mental status): Encephalopathy of undetermined cause whether metabolic or toxic. Possible Toxic Vs. Metabolic encephalopathy Patient's Depakote level is low so this is not toxicity from urine tox screen linear opacity seen the base of her temporal skull on CT scan of the brain, MRI scan does not show confirmation of this making this an artifact now will once again hold her Risperdal but have Haldol and Ativan supplied for behavior control if needed Psychiatric consult cannot have meaningful interaction (3) Abnormal EKG: Patient is a sinus rhythm with diffuse T wave changes she has no correlating clinical symptoms. she has had no arrythmia and repeat troponin is normal (4) Hypertension: Patient has hypertension listed as noted for past history but is on no medications for this, on presentation her blood pressure is normotensive (5) Dyslipidemia: Patient typically takes atorvastatin which continues to be on hold (6) Psychiatric disorder: Patient be maintained on her Depakote, Risperdal be held (7) DVT prophylaxis: DVT prevention will be heparin due to renal dysfunction Admission and Anticipated Discharge Date Admission Date: August 15, 2019 attempted to call only to be met wtih a busy signal and no opportunity to leave a message Subjective this pt seemed once again seems sedate and seems to correlate with restarting of her risperdal which is again held Review of Systems Review of Systems: Unobtainable due to cognitive status Physical Exam Physical Exam: The patient appeared well nourished and normally developed. She is once again sedate Vital signs as documented. Head exam is normocephalic atraumatic no scleral icterus PERRLA EOMI Neck is without JVD, thyromegaly, or carotid bruits. Lungs are clear to auscultation, no focal loss of breath sounds Cardiac exam, Rhythm is regular.. No murmurs, rubs or gallops. Abdominal exam reveals normal bowel sounds, soft non tender, no masses Extremities are nonedematous and both pedal pulses are normal. Results & Data Results & Data ([facility]) Vital Signs (Past 12 Hours) Vital Signs Temp Pulse Resp BP Pulse Ox 08/17/19 14:47 68 20 148/76 H 99 08/17/19 07:15 98.6 F 75 18 146/65 H 99 PG Care Time/CCT Total # of Minutes Spent Total Time Spent with Patient: Total time spent is greater than 50% in coordination of care (as documented) at patient's floor/unit and/or counseling patient: Coding Level of Care Code 46124 Subseq Hosp Care Lvl 2 Diagnoses Acute renal failure (ARF) N17.9 Acute renal failure type: unspecified AMS (altered mental status) R41.0 Altered mental status type: disorientation Abnormal EKG R94.31 Hypertension I10 Dyslipidemia E78.5 Psychiatric disorder F99 DVT prophylaxis Z29.9 (1) Acute renal failure (ARF) Acute renal failure type: unspecified Qualified Code(s): N17.9 - Acute kidney failure, unspecified (2) AMS (altered mental status) Altered mental status type: disorientation Qualified Code(s): R41.0 - Disorientation, unspecified
[2019-08-17] MEDS ORDERED: risperiDONE 2 MG TABLET PO SCH (21:00)
[2019-08-17] MEDS ORDERED: risperiDONE 3 MG TABLET PO SCH (21:00)
[2019-08-18] MEDS: SODIUM CHLORIDE 0.45 % 1,000 ML IV SCH ×2 (06:08→13:07)
[2019-08-18 07:06] LABS: BUN Creatinine Ratio 15.3 (10-20); Blood Urea Nitrogen 12 mg/dl (7-18); Calcium 8.9 mg/dl (8.5-10.1); Carbon Dioxide 26 mmol/L (21-32); Chloride 111 mmol/L (98-107); Est GFR (African American) 90.2; Est GFR (Non-African American) 77.8; Glucose 79 mg/dl (70-99); Sodium 144 mmol/L (136-145)
[2019-08-18] MEDS ORDERED: MEMANTINE HCL 5 MG TAB PO SCH (09:00)
[2019-08-18] MEDS: VALPROATE SOD 500 MG in DEXTROSE 5% 50 ML IV SCH ×2 (09:29→22:22)
[2019-08-18] MEDS: HEPARIN SOD 5,000 UNIT/0.5 ML VIAL SQ SCH (09:29)
[2019-08-18] MEDS: POTASSIUM CHLORIDE 20 MEQ TABCR PO SCH ×2 (09:37→12:01)
[2019-08-18] MEDS: MEMANTINE HCL 5 MG TAB PO SCH ×2 (09:37→22:22)
[2019-08-18] MEDS ORDERED: POTASSIUM CHLORIDE 10 MEQ / 100ML WTR IV STA (10:29)
[2019-08-18] MEDS: POTASSIUM CHLORIDE / WTR 10 MEQ/100 ML PLCT IV SCH ×3 (10:52→13:03)
--- NOTE | 2019-08-18 12:38 | Hospitalist Progress Note ---
Date of Service August 18, 2019 Assessment & Plan (1) Acute renal failure (ARF): Resolved felt likely to be secondary to lithium medication renal ultrasound pending to rule out obstruction urine analysis without active sediment. (2) AMS (altered mental status): Encephalopathy felt to be toxic from medications and metabolic from renal failure both are resolving she remains with baseline confusion Possible Toxic Vs. Metabolic encephalopathy Patient's Depakote level is low so this is not toxicity from urine tox screen linear opacity seen the base of her temporal skull on CT scan of the brain, MRI scan does not show confirmation of this making this an artifact We have discontinued her Risperdal but have Haldol and Ativan supplied for behavior control if needed Psychiatric consult cannot have meaningful interaction Work-up medical causes for encephalopathy including a sed rate, KATIA, Lyme titer, B1 level, B12 and folic acid. Given her history of "neurodegenerative disorder" patient will be started on Namenda Hypokalemia will need to be repleted intravenously as the patient cannot take oral potassium chloride (3) Abnormal EKG: Patient is a sinus rhythm with diffuse T wave changes she has no correlating clinical symptoms. she has had no arrythmia and repeat troponin is normal (4) Hypertension: Patient has hypertension listed as noted for past history but is on no medications for this, on presentation her blood pressure is normotensive (5) Dyslipidemia: Patient typically takes atorvastatin which continues to be on hold (6) Psychiatric disorder: Patient be maintained on her Depakote, Risperdal be held (7) DVT prophylaxis: DVT prevention we will transition enoxaparin given her renal function is improved Admission and Anticipated Discharge Date Admission Date: August 15, 2019 Subjective This patient is much more awake and alert she however will not answer questions directly cannot tell me her 's phone number varies between ignoring me and laughing. Spontaneously moving all extremities in the room. She did take her Namenda this morning but would not take oral potassium supplementation Review of Systems Review of Systems: This review of systems remains clouded by the patient's confusion however she continues to deny any physical ailments on questioning She appears to be an mild distress and fatigued no headache, blurry or double vision no speech or swallowing issues no chest pain, pressure or palpitations no shortness of breath, cough or wheezes no abdominal pain, nausea or vomiting, diarrhea or constipation no dysuria, hematuria or frequency no focal joint pain or swelling no back pain, CVA tenderness or radicular pain no bruising, bleeding or rashes no focal signs of weakness or numbness or altered sensation no complaints or anxiety or depression. Physical Exam Physical Exam: The patient appeared well nourished and normally developed. She is awake and confused Vital signs as documented. Head exam is normocephalic atraumatic no scleral icterus PERRLA EOMI Neck is without JVD, thyromegaly, or carotid bruits. Lungs are clear to auscultation, no focal loss of breath sounds Cardiac exam, Rhythm is regular.. No murmurs, rubs or gallops. Abdominal exam reveals normal bowel sounds, soft non tender, no masses Extremities are nonedematous and both pedal pulses are normal. Results & Data Results & Data ([facility]) Vital Signs (Past 12 Hours) Vital Signs Temp Pulse Resp BP Pulse Ox 08/18/19 07:43 71 153/68 H 98 08/18/19 07:14 99.7 F H 71 16 186/73 H 98 PG Care Time/CCT Total # of Minutes Spent Total Time Spent with Patient: Total time spent is greater than 50% in coordination of care (as documented) at patient's floor/unit and/or counseling patient: Coding Level of Care Code 98003 Subseq Hosp Care Lvl 3 Diagnoses Acute renal failure (ARF) N17.9 Acute renal failure type: unspecified AMS (altered mental status) R41.0 Altered mental status type: disorientation Abnormal EKG R94.31 Hypertension I10 Dyslipidemia E78.5 Psychiatric disorder F99 DVT prophylaxis Z29.9 (1) Acute renal failure (ARF) Acute renal failure type: unspecified Qualified Code(s): N17.9 - Acute kidney failure, unspecified (2) AMS (altered mental status) Altered mental status type: disorientation Qualified Code(s): R41.0 - Disorientation, unspecified
[2019-08-18 13:16] LABS: Lyme Ab IgG w/WB Rflx Negative (Negative); Lyme Ab IgM w/WB Rflx Negative (Negative)
[2019-08-19 07:11] LABS: Hematocrit (blood only) 33.4 % (37-47); Hemoglobin 11.8 g/dL (12.0-16.0); Mean Corpuscular Hemoglobin 32.4 pg (25-34); Mean Corpuscular Hgb Conc 35.3 g/dL (32-36); Mean Corpuscular Volume 91.8 fL (80-100); Mean Platelet Volume 10.7 fL (7.4-10.4); Platelet Count 140 K/uL (130-400); RDW Coefficient of Variation 13.3 % (11.5-14.5); RDW Standard Deviation 44.9 fL (36.4-46.3); Red Blood Count 3.64 M/uL (4.2-5.4); White Blood Count 7.25 K/uL (4.8-10.8)
[2019-08-19 07:42] LABS: BUN Creatinine Ratio 11.2 (10-20); Blood Urea Nitrogen 9 mg/dl (7-18); Carbon Dioxide 25 mmol/L (21-32); Chloride 108 mmol/L (98-107); Est GFR (Non-African American) 80.2; Glucose 128 mg/dl (70-99); Sodium 140 mmol/L (136-145)
[2019-08-19] MEDS: VALPROATE SOD 500 MG in DEXTROSE 5% 50 ML IV SCH ×2 (08:40→20:49)
[2019-08-19] MEDS: MEMANTINE HCL 5 MG TAB PO SCH ×2 (08:58→20:49)
[2019-08-19] MEDS: ENOXAPARIN INJ 40 MG/0.4 ML SYR SQ SCH (08:58)
[2019-08-19] MEDS: POTASSIUM CHLORIDE 20 MEQ/15 ML UDC PO SCH ×2 (09:53→20:49)
--- NOTE | 2019-08-19 11:53 | Hospitalist Progress Note ---
Date of Service August 19, 2019 Assessment & Plan (1) Acute renal failure (ARF): Resolved felt likely to be secondary to lithium medication renal ultrasound without acute abnormality urine analysis without active sediment. (2) AMS (altered mental status): Encephalopathy felt to be toxic from medications and metabolic from renal failure - patient continues to be quite confused and non sensical in conversation Possible Toxic Vs. Metabolic encephalopathy Patient's Depakote level low on admission urine tox screen negative linear opacity seen the base of her temporal skull on CT scan of the brain however MRI was without abnormality - artifact on the original image Hold Risperdal, continue Haldol and Ativan prn Psychiatric consult cannot have meaningful interaction - recommends risperidone resumed when patient is more alert at 0.5 mg TID dosing with prn dose of 0.5 mg q4h for agitation. Work-up medical causes for encephalopathy including a sed rate wnl, KATIA pending Lyme titer wnl, B12 elevated and RPR pending. Given her history of "neurodegenerative disorder" patient was started on Namenda 5 mg. She had been taken off of Aricept at the [facility] for concern that it was contributing to her agitation as this is a listed side effect (3) Abnormal EKG: Patient EKG on admission with sinus rhythm with diffuse T wave changes, no ischemic symptoms Troponin was normal (4) Hypertension: Intermittently hypertensive, but overall bps accepable (5) Dyslipidemia: Patient typically takes atorvastatin which continues to be on hold (6) Psychiatric disorder: Patient be maintained on her Depakote, Risperdal as above (7) Hyponatremia: Potassium 3.0 today, replaced with oral elixer as patient has trouble swallowing pill form Repeat level am (8) DVT prophylaxis: DVT prevention we will transition enoxaparin given her renal function is improved Updated . He reports that at baseline Ms. Addison is able to hold a conversation and is pretty functional, only had to stop driving 6 months ago. Her decline has been quite rapid starting about 10 days before her admission to [facility] and then admission to the [facility]. She was in the care of a neurologist previous to this. Will request records from her [facility] admission. Admission and Anticipated Discharge Date Admission Date: August 15, 2019 Subjective Ms. Addison is awake and alert but unable to answer questions sensibly. She is able to answer her name correctly Physical Exam Physical Exam: General: no distress Eyes: normal inspection, PERLL Respiratory: chest non tender, clear to auscultation, normal breath sounds, no respiratory distress, no accessory muscle use Cardiac: regular rate and rhythm, no rub or gallop, no murmur, no edema, no jvd GI/: active bowel sounds, no abd pain or tenderness, soft, non distended Extremities: normal range of motion, normal strength, non tender Neuro/Psych: alert and oriented to self, normal mood and affect Skin: normal color, dry Results & Data Results & Data ([facility]) Vital Signs (Past 12 Hours) Vital Signs Temp Pulse Resp BP Pulse Ox 08/19/19 08:12 36.8 C 63 16 135/88 97 PG Care Time/CCT Total # of Minutes Spent Total Time Spent with Patient: Total time spent is greater than 50% in coordination of care (as documented) at patient's floor/unit and/or counseling patient: Coding Level of Care Code 26786 Subseq Hosp Care Lvl 3 Diagnoses Acute renal failure (ARF) N17.9 Acute renal failure type: unspecified AMS (altered mental status) R41.0 Altered mental status type: disorientation Abnormal EKG R94.31 Hypertension I10 Dyslipidemia E78.5 Psychiatric disorder F99 Hyponatremia E87.1 DVT prophylaxis Z29.9 (1) Acute renal failure (ARF) Acute renal failure type: unspecified Qualified Code(s): N17.9 - Acute kidney failure, unspecified (2) AMS (altered mental status) Altered mental status type: disorientation Qualified Code(s): R41.0 - Disorientation, unspecified
--- NOTE | 2019-08-19 12:24 | Psychiatric Progress Note ---
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 - Although patient remains disoriented, she has not been combative or aggressive at this time at our facility. Prn medications have been available should patient become combative or agitated. - Case reviewed with hospitalist team - agree with holding risperidone until patient is more alert. Can consider 0.5mg TID dosing with an available prn dose of 0.5mg q4h prn for any agitation - this can be initiated when patient is less sedated. Advancing back to patient's home dose of 1mg qAM, 1mg @1300, and 2mg HS can be considered based on evaluation of patient's response and observe behavior. - Would suggest initiation of conversation with /family regarding discharge planning - as patient's presentation is suggested to be behavioral changes related to primary dementing process. Cognitive decline has reportedly been noticed for the past 5 years, with more progressive decompensation in the last 5 months. It would be beneficial to explore family's wishes regarding placement or ability to care for patient at home, if this should be indicated. - Please reach out to our service with any additional questions or updates, we will continue to follow. 08/18 - Interval History Chief Complaint "[]". Subjective Subjective Patient was seen & assessed and interval progress reviewed with [treatment team] [nursing and social work] Physical Exam Vital Signs (Past 24 Hours) Last Vital Signs Temp 36.8 C 08/19/19 08:12 Pulse 63 08/19/19 08:12 Resp 16 08/19/19 08:12 BP 135/88 08/19/19 08:12 Pulse Ox 97 08/19/19 08:12 Results & Data ([facility]) Laboratory Results Laboratory Results - last 24 hr 08/18/19 08/18/19 08/18/19 12:07 12:07 12:07 WBC RBC Hgb Hct MCV MCH MCHC RDW Std Deviation RDW Coeff of Phillip Plt Count MPV ESR 4 Sodium Potassium Chloride Carbon Dioxide Anion Gap BUN Creatinine Est Cr Clr Drug Dosing Est GFR ( Amer) Est GFR (Non-Af Amer) BUN/Creatinine Ratio Glucose Calcium Whole Bld Vitamin B1 Vitamin B12 935 H KATIA Screen RPR Pending Lyme Disease IgG Ab Negative Lyme Disease IgM Ab Negative 08/18/19 08/19/19 08/19/19 12:07 06:56 06:56 WBC 7.25 RBC 3.64 L Hgb 11.8 L Hct 33.4 L MCV 91.8 MCH 32.4 MCHC 35.3 RDW Std Deviation 44.9 RDW Coeff of Phillip 13.3 Plt Count 140 MPV 10.7 H ESR Sodium 140 Potassium 3.0 L Chloride 108 H Carbon Dioxide 25 Anion Gap 8.0 BUN 9 Creatinine 0.79 Est Cr Clr Drug Dosing Not Reportable Est GFR ( Amer) 93.0 Est GFR (Non-Af Amer) 80.2 BUN/Creatinine Ratio 11.2 Glucose 128 H Calcium 9.0 Whole Bld Vitamin B1 Pending Vitamin B12 KATIA Screen Pending RPR Lyme Disease IgG Ab Lyme Disease IgM Ab Current Inpatient Medications Current Inpatient Medications: Current Inpatient Medications Acetaminophen (Tylenol) 650 mg PO Q4H PRN PRN Reason: Pain or Fever Stop: 09/14/19 19:03 Enoxaparin Sodium (Lovenox) 40 mg SQ QAM [facility] Stop: 09/18/19 08:59 Last Admin: 08/19/19 08:58 Dose: 40 mg Documented by: Haloperidol Lactate (Haldol) 1 mg IV Q1H PRN PRN Reason: Agitation Stop: 09/14/19 19:03 Lorazepam (Ativan) 0.5 mg in 1 mls @ 1 mls/min IV Q4H PRN PRN Reason: Agitation Stop: 09/14/19 19:03 Last Admin: 08/19/19 12:11 Dose: 1 mls/min Documented by: Valproic Acid 500 mg/ Dextrose 55 mls @ 55 mls/hr IV BID [facility] Stop: 09/15/19 10:14 Last Infusion: 08/19/19 09:53 Dose: Infused Documented by: Memantine (Namenda) 5 mg PO BID [facility] Stop: 09/17/19 08:59 Last Admin: 08/19/19 08:58 Dose: 5 mg Documented by: Ondansetron HCl (Zofran) 4 mg IV Q6H PRN PRN Reason: Nausea Stop: 09/14/19 19:03 Potassium Chloride (Cristina Ciel Elix) 40 meq PO BID [facility] Stop: 08/19/19 22:00 Last Admin: 08/19/19 09:53 Dose: 40 meq Documented by:
--- NOTE | 2019-08-19 16:22 | Communication Note ---
Date of Service: August 19, 2019 Attempted reassessment of patient today. She is observed to be sleeping soundly, not waking to verbal stimuli. Patient's chart reviewed, nursing notes suggest patient has continued to be disoriented but that she has not displayed combative or agitated behavior. We have learned that there is a suspected underlying neurodegenerative disorder at play, which is likely to be affecting patient's behavior. There continues to be no evidence of a primary mood or thought disorder. Based on improvement in behavior and lack of a primary psychiatric condition, patient would not at this time meet criteria for referral for inpatient psychiatric hospitalization. Recommendations discussed with hospitalist team, but as patient continues to be rather sedated it is difficult to assess whether risperidone will need to be resumed. If agitation should resurface, would suggest risperidone 0.5mg TID, and hold medication for over- sedation. Consideration to titrate can be considered over time, based on patient's response. Agree with case management involvement, to discuss potential discharge options with the and coordinate aftercare. It would be helpful to explore any limitations the perceives are present in regard to caring for his after medical clearance and discharge. Although patient's decline has been more rapid recently and it is possible she may still demonstrate improvement in condition during this hospitalization - the overarching trend for her health, per , was reported to be declining for at least 5 years. Would suggest exploration of need for home health services versus placement consideration, based on 's anticipated needs and best interest of the patient.
[2019-08-20 00:02] LABS: Rapid Plasma Reagin Nonreactive (Nonreactive)
[2019-08-20 08:51] LABS: Basophils # (auto) 0.01 K/uL (0-0.2); Basophils % (auto) 0.2 %; Eosinophils # (auto) 0.15 K/uL (0-0.5); Eosinophils % (auto) 2.3 %; Hematocrit (blood only) 32.7 % (37-47); Hemoglobin 11.4 g/dL (12.0-16.0); Immature Granulocytes # (auto) 0.06 K/uL (0.00-0.02); Immature Granulocytes % (auto) 0.9 %; Lymphocytes # (auto) 1.04 K/uL (1.2-3.4); Lymphocytes % (auto) 15.9 %; Mean Corpuscular Hemoglobin 32.1 pg (25-34); Mean Corpuscular Hgb Conc 34.9 g/dL (32-36); Mean Corpuscular Volume 92.1 fL (80-100); Mean Platelet Volume 10.9 fL (7.4-10.4); Monocytes # (auto) 0.51 K/uL (0.11-0.59); Monocytes % (auto) 7.8 %; Neutrophils # (auto) 4.76 K/uL (1.4-6.5); Neutrophils % (auto) 72.9 %; Platelet Count 117 K/uL (130-400); RDW Coefficient of Variation 13.4 % (11.5-14.5); RDW Standard Deviation 45.6 fL (36.4-46.3); Red Blood Count 3.55 M/uL (4.2-5.4); White Blood Count 6.53 K/uL (4.8-10.8)
[2019-08-20 09:26] LABS: Alanine Aminotransferase 27 U/L (12-78); Albumin Level 2.9 gm/dl (3.4-5.0); Alkaline Phosphatase 98 U/L (45-117); Aspartate Aminotransferase 26 U/L (15-37); BUN Creatinine Ratio 9.5 (10-20); Bilirubin,Total 0.5 mg/dl (0.2-1); Blood Urea Nitrogen 8 mg/dl (7-18); Calcium 9.5 mg/dl (8.5-10.1); Carbon Dioxide 27 mmol/L (21-32); Chloride 106 mmol/L (98-107); Est GFR (Non-African American) 80.2; Glucose 85 mg/dl (70-99); Potassium 3.7 mmol/L (3.5-5.1); Sodium 138 mmol/L (136-145); Total Protein 5.9 gm/dl (6.4-8.2)
[2019-08-20] MEDS: VALPROATE SOD 500 MG in DEXTROSE 5% 50 ML IV SCH (09:50)
[2019-08-20] MEDS: ENOXAPARIN INJ 40 MG/0.4 ML SYR SQ SCH (09:50)
[2019-08-20] MEDS: MEMANTINE HCL 5 MG TAB PO SCH ×2 (09:50→21:31)
--- NOTE | 2019-08-20 14:37 | Hospitalist Progress Note ---
Date of Service August 20, 2019 Assessment & Plan (1) Acute renal failure (ARF): Creat was 4.8 on admission, now 0.79 Resolved felt likely to be secondary to lithium medication renal ultrasound without acute abnormality urine analysis without active sediment. (2) AMS (altered mental status): Possible Toxic Vs. Metabolic encephalopathy Patient's Depakote level low on admission, repeat level am urine tox screen negative linear opacity seen the base of her temporal skull on CT scan of the brain however MRI was without abnormality - artifact on the original image Hold Risperdal, dc Haldol and Ativan prn as discussed below Psychiatric consult cannot have meaningful interaction - Does not feel there is a primary mood disorder. Work-up medical causes for encephalopathy including a sed rate wnl, KATIA pending, Lyme titer wnl, B12 elevated and RPR non reactive. Given her history of "neurodegenerative disorder" patient was started on Namenda 5 mg. She had been taken off of Aricept at the [facility] for concern that it was contributing to her agitation as this is a listed side effect Discussed with patient's . He reported that at baseline Ms. Addison is able to hold a conversation and is pretty functional, only had to stop driving 6 months ago. Her decline has been quite rapid starting about 10 days before her admission to [facility] and then admission to the [facility]. She was in the care of a neurologist previous to this. Awaiting records from her [facility] admission. Will also obtain records from her neurologist. Neurology was consulted and the following recommendations were made. - ammonia level, anti-TPO antibodies, serum autoimmune encephalitis panel - low threshold to obtain LP if it has not been previously performed; recommend sending off cell counts, glucose, protein, crypto, viral PCRs, CSF autoimmune encephalitis panel (prefer [facility] option if possible) - for agitation, would prefer seroquel 25mg qhs - delirium precautions, lights on during day, lights off at night, frequent reorientation, up and out of bed during daylight hours, avoid opiates/benzos as possible - if she does have true underlying dementia, would recommend holding depakote and trying alternative agent for mood (maybe SSRI + seroquel) as cognitive side effects in elderly/demented patients are common (3) Abnormal EKG: Patient EKG on admission with sinus rhythm with diffuse T wave changes, no ischemic symptoms Troponin was normal (4) Hypertension: Intermittently hypertensive, but overall bps accepable (5) Dyslipidemia: continue home atorvastatin (6) Psychiatric disorder: Continue Depakote, hold Risperdal as above (7) Hyponatremia: Repleated (8) Hypercalcemia: Mild - calcium with albumin corrects to 10.4. PTH is trending down to 145. May be secondary to lithium administration although per the literature, this is more common with longer term lithium use. Will continue to monitor for now. (9) DVT prophylaxis: Enoxaparin Updated again today. Admission and Anticipated Discharge Date Admission Date: August 15, 2019 Subjective Ms. Addison continues to be very confused. She was unable to answer my questions including her name. Physical Exam Physical Exam: General: no distress Eyes: normal inspection, PERLL Respiratory: chest non tender, clear to auscultation, normal breath sounds, no respiratory distress, no accessory muscle use Cardiac: regular rate and rhythm, no rub or gallop, no murmur, no edema, no jvd GI/: active bowel sounds, no abd pain or tenderness, soft, non distended Extremities: normal range of motion, normal strength, non tender Neuro/Psych: alert and oriented x 3, normal mood and affect Skin: normal color, dry Results & Data Results & Data ([facility]) Vital Signs (Past 12 Hours) Vital Signs Temp Pulse Resp BP Pulse Ox 08/20/19 07:14 36.9 C 62 18 155/73 H 97 PG Care Time/CCT Total # of Minutes Spent Total Time Spent with Patient: Total time spent is greater than 50% in coordination of care (as documented) at patient's floor/unit and/or counseling patient: Coding Level of Care Code 67886 Subseq Hosp Care Lvl 3 Diagnoses Acute renal failure (ARF) N17.9 Acute renal failure type: unspecified AMS (altered mental status) R41.0 Altered mental status type: disorientation Abnormal EKG R94.31 Hypertension I10 Dyslipidemia E78.5 Psychiatric disorder F99 Hyponatremia E87.1 Hypercalcemia E83.52 DVT prophylaxis Z29.9 (1) Acute renal failure (ARF) Acute renal failure type: unspecified Qualified Code(s): N17.9 - Acute kidney failure, unspecified (2) AMS (altered mental status) Altered mental status type: disorientation Qualified Code(s): R41.0 - Disorientation, unspecified
--- NOTE | 2019-08-20 15:58 | Neurology Consultation ---
Date of Consultation August 20, 2019 Assessment & Plan (1) Acute renal failure (ARF): (2) AMS (altered mental status): Marycruz Addison is a 63 yo woman w/ PMH of HLD, HTN, and possible psychiatric history on depakote/lithium who p/t [facility] on 08/15/19 in the setting of acute renal failure thought to be 2/2 lithium toxicity, neurology was consulted for persistent AMS. # Persistent AMS in setting of underlying neurodegenerative disorder: could represent delirium on dementia. She is young for dementia, so would want to complete workup as below to ensure that there are no other causes for dementia - would check ammonia level, anti-TPO antibodies, serum autoimmune encephalitis panel - low threshold to obtain LP if it has not been previously performed; recommend sending off cell counts, glucose, protein, crypto, viral PCRs, CSF autoimmune encephalitis panel (prefer [facility] option if possible) - for agitation, would prefer seroquel 25mg qhs - delirium precautions, lights on during day, lights off at night, frequent reorientation, up and out of bed during daylight hours, avoid opiates/benzos as possible - if she does have true underlying dementia, would recommend holding depakote and trying alternative agent for mood/behavioral issues (maybe SSRI + seroquel or pimavanserin/Nuplazid) as cognitive side effects in elderly/demented patients are common - Agree with RADHIKA from [facility]/prior neurologist - if she has not had an EEG in the past, would recommend having one performed in the next 2-3 days (after stopping depakote) Review for this interesting consult. Plan of care discussed with primary team. Please call or text with questions. (3) Cognitive and behavioral changes: History of Present Illness Attending Physician: Jeet Allen MD History of Present Illness Marycruz Addison is a 63 yo woman w/ PMH of HLD, HTN, and possible psychiatric history on depakote/lithium who p/t [facility] on 08/15/19 in the setting of acute renal failure thought to be 2/2 lithium toxicity, neurology was consulted for persistent AMS. In the ED, patient was afebrile, BP 122/45, heart rate 84, respiratory rate 18, satting 90% on room air. Labs notable for WBC 11.41, hemoglobin 13.6, platelets 192, BUN 115, creatinine 4.82, glucose 100, chloride mildly elevated at 111, sodium/potassium within normal, AST/ALT within normal, mildly elevated alkaline phosphatase 161, CK 55, TSH 3.21, Depakote level 41. Chest x-ray showed no pneumonia. CT head shows no hemorrhage or hypodensity, positive for generalized atrophy and lytic lesion versus small fracture right temporal bone. She was admitted for AMS and new onset ARF. Since her admission, she has had further work-up for her AMS which includes a negative urinalysis, negative UDS, negative Lyme and RPR, B12 935, elevated PTH 249.1, ESR 4, thiamine/KATIA pending. She had MRI of the brain that was notable for moderate generalized atrophy predominantly in the frontal temporal lobes with minimal small vessel disease; no cortical ribboning, tumor or midline malformation noted. Per discussion with primary team and review of notes, she has had a cognitive decline for about the last 3-5 years with worsening significantly in the last several months, followed by new onset agitation and speech difficulty in the last one month. She was previously evaluated by neurologist at [facility] for cognitive complaints; no records currently available for previous work-up. No history of prior mental health issues. On examination today, she was sleeping and difficult to arouse. With constant stimulation, she is able to open her eyes and state her name, but would otherwise not follow commands. Discussed with nursing, who reports that she is usually sleeping throughout the day and will wake up around 8 PM at night. She has been known to try to jump out of the bed or have nonsensical speech at that time. She is able to walk to the bathroom with a 1-2 person assist. She has poor appetite per nursing and has to be fed; she may also appear to have difficulties with dysphagia as she often will regurgitate un-chewed food. Allergies Allergy/AdvReac Type Severity Reaction Status Date / Time RED DYE Allergy Unknown Uncoded 08/15/19 16:48 Home Medications Home Medications Medication Instructions Recorded Confirmed Type atorvastatin 20 mg PO HS 08/15/19 08/15/19 History divalproex [Depakote] 500 mg PO BID 08/15/19 08/15/19 History risperidone [Risperdal] 1 mg PO BID 08/15/19 08/15/19 History risperidone [Risperdal] 2 mg PO HS 08/15/19 08/15/19 History Patient History Social History Preferred Language: Welsh Communication Ability: Impaired Communication Ability Comment: Pt oriented to self only, unable to determine reading/writing [facility] Specialist Required: No marital status: Feels Safe at Home: Yes Smoking Status: Never smoker Review of Systems Review of Systems: Unobtainable due to cognitive status Exam (Neuro) Physical Exam: General Exam: GEN: NAD, lying in bed. HEENT: No conjunctival injection, no rhinorrhea. CV: RRR, no peripheral edema PULM: Nonlabored respirations on room air. Neuro Exam: MS: Drowsy, required constant stimulation to stay awake. Oriented only to self not place, situation or month/year. Paucity of speech makes testing of cognition and language difficult. No clear neglect CN: Positive blink to threat bilaterally. Unable to visualize fundi on fundoscopic exam as patient would not keep her eyes open. PERRLA OU. EOMI without nystagmus on observed eye movements. Facial muscles full and symmetric. Hearing. Intact to conversation. Unable to assess tongue, uvular shoulder due to AMS. MOTOR: Normal bulk and tone. Able to move all extremities antigravity at least momentarily. REFLEXES: 2+ at biceps, triceps, brachioradialis, 2+ and brisk patella and 2+ Achilles bilaterally. No clonus. Flexor plantar responses bilaterally. SENSORY: Withdraws to noxious stimuli in all extremities COORDINATION: Unable to assess due to mental status GAIT: Deferred given mental status and fall risk. Results & Data ([facility]) Vital Signs (Past 12 Hours) Vital Signs Temp Pulse Resp BP Pulse Ox 08/20/19 07:14 36.9 C 62 18 155/73 H 97 PG Care Time/CCT Total # of Minutes Spent Total Time Spent with Patient: Total time spent is greater than 50% in coordination of care (as documented) at patient's floor/unit and/or counseling patient: Coding Level of Care Code 26777 Inpt Consult Level 5 Diagnoses Acute renal failure (ARF) N17.9 Acute renal failure type: unspecified AMS (altered mental status) R41.0 Altered mental status type: disorientation Cognitive and behavioral changes R41.89; R46.89 (1) Acute renal failure (ARF) Acute renal failure type: unspecified Qualified Code(s): N17.9 - Acute kidney failure, unspecified (2) AMS (altered mental status) Altered mental status type: disorientation Qualified Code(s): R41.0 - Disorientation, unspecified
[2019-08-20] MEDS ORDERED: QUETIAPINE FUMARATE 25 MG TABLET PO PRN (16:21)
[2019-08-20] MEDS: ATORVASTATIN 20 MG TAB PO SCH (21:31)
[2019-08-20] MEDS: QUETIAPINE FUMARATE 25 MG TABLET PO SCH (21:32)
[2019-08-21] MEDS ORDERED: LORazepam 1 MG/2 ML VIAL IV PRN (06:00)
[2019-08-21 07:04] LABS: Hematocrit (blood only) 36.2 % (37-47); Hemoglobin 12.1 g/dL (12.0-16.0); Mean Corpuscular Hemoglobin 31.5 pg (25-34); Mean Corpuscular Hgb Conc 33.4 g/dL (32-36); Mean Corpuscular Volume 94.3 fL (80-100); Mean Platelet Volume 10.6 fL (7.4-10.4); Platelet Count 136 K/uL (130-400); RDW Coefficient of Variation 13.7 % (11.5-14.5); RDW Standard Deviation 47.5 fL (36.4-46.3); Red Blood Count 3.84 M/uL (4.2-5.4); White Blood Count 5.72 K/uL (4.8-10.8)
[2019-08-21 07:45] LABS: Est GFR (African American) 82.8; Est GFR (Non-African American) 71.4
[2019-08-21] MEDS ORDERED: LORazepam 0.5 MG/1 ML VIAL IV PRN (08:32)
[2019-08-21] MEDS: MEMANTINE HCL 5 MG TAB PO SCH ×2 (08:49→19:55)
[2019-08-21 09:14] LABS: BUN Creatinine Ratio 9.9 (10-20); Blood Urea Nitrogen 9 mg/dl (7-18); Calcium 9.9 mg/dl (8.5-10.1); Carbon Dioxide 28 mmol/L (21-32); Chloride 108 mmol/L (98-107); Est GFR (African American) 82.8; Est GFR (Non-African American) 71.4; Glucose 81 mg/dl (70-99); Potassium 3.3 mmol/L (3.5-5.1); Sodium 142 mmol/L (136-145)
[2019-08-21] MEDS ORDERED: POTASSIUM CHLORIDE 20 MEQ/15 ML UDC PO STA (09:50)
[2019-08-21 14:34] LABS: Appearance CSF Clear; CSF Count Tube # 3; CSF Xanthrochromic No xanthochromia; Color CSF Colorless; Red Blood Cell CSF (A) 0 /uL (0-); Red Blood Cell CSF (B) 0 /uL (0-); White Blood Cell CSF (A) 0 /uL (0-5); White Blood Cell CSF (B) 0 /uL (0-5)
--- NOTE | 2019-08-21 14:36 | Fluoroscopy Report ---
FLUOROSCOPICALLY GUIDED LUMBAR PUNCTURE CLINICAL HISTORY: acute mental status change FLUOROSCOPY TIME: 0.2 minutes. A single fluoroscopic spot image of the lumbar spine. PROCEDURE: The procedure, risks and benefits were discussed with the patient including the risk of s wali headache, bleeding and infection. The patient agreed to the procedure and informed written cons ent was obtained. The procedure was performed by Dr. Casiano following a timeout. The left L5-S1 in terlaminar space was targeted. Skin overlying the space was prepped and draped in the usual sterile f ashion and local anesthesia was achieved with 1% lidocaine. Under intermittent fluoroscopic guidance, a 20-gauge x 3 1/2 in. Sprotte needle was inserted into the thecal sac. A total of 10 cc of clear, c olorless cerebral spinal fluid was obtained and spread amongst 4 vials. The patient tolerated the pro cedure well. There were no immediate complications. The specimens were sent to the laboratory at the request of the referring physician. IMPRESSION: Successful fluoroscopic guided lumbar puncture with removal of 10 cc of clear, colorless cerebral spinal fluid. No immediate complications. ACT 112: Negative or not required by law. Electronically signed by: Juan Casiano M.D. 08/21/2019 2:35 PM
--- NOTE | 2019-08-21 14:42 | Neurology Progress Note ---
Date of Service August 21, 2019 Assessment & Plan (1) Acute renal failure (ARF): (2) AMS (altered mental status): Marycruz Addison is a 63 yo woman w/ PMH of HLD, HTN, and possible psychiatric history on depakote/lithium who p/t [facility] on 08/15/19 in the setting of acute renal failure thought to be 2/2 lithium toxicity, neurology was consulted for persistent AMS. Work-up thus far: - Normal: B12 935, TSH WNL, ammonia less than 10, UA no infection - Abnormal: PTH elevated to 49.1 - Pending: thiamine, anti-TPO antibodies, serum autoimmune encephalitis panel, KATIA screen - MRI brain: moderate generalized atrophy predominantly in the frontal temporal lobes with minimal small vessel disease; no cortical ribboning, tumor or midline malformation noted CSF studies: 0 WBCs, 0 RBCs; protein, glucose, viral PCR's, autoimmune encephalitis panel pending # Persistent AMS in setting of underlying neurodegenerative disorder: could represent delirium on dementia. She is young for dementia, so would want to complete workup as below to ensure that there are no other causes for dementia - continue seroquel 25mg qhs, memantine 5mg bid; hold depakote, if mood becomes an issue, can transition seroquel to pimavanserin - delirium precautions, lights on during day, lights off at night, frequent reorientation, up and out of bed during daylight hours, avoid opiates/benzos as possible - agree with RADHIKA from [facility]/prior neurologist - if she has not had an EEG in the past, would recommend having one performed on or Monday Review for this interesting consult. Plan of care discussed with primary team. Please call or text with questions. (3) Cognitive and behavioral changes: Admission and Anticipated Discharge Date Admission Date: August 15, 2019 Subjective NAEs overnight. She is more alert today was able to tell me her name but otherwise did not answer questions appropriately or follow commands. She is able to mimic. When I first entered the room, she was looking to her left and talking to what appeared to be a visual hallucination in the room. Interim testing shows ammonia less than 10, Depakote level 76, and TPO antibodie s and serum autoimmune panel are pending. She did have a lumbar puncture performed this afternoon that shows 0 WBCs, 0 RBCs; glucose, protein and remainder of testing still pending. Review of Systems Review of Systems: Unobtainable due to cognitive status Results & Data ([facility]) Vital Signs (Past 12 Hours) Vital Signs Temp Pulse Resp BP Pulse Ox 08/21/19 07:22 37.3 C 74 16 145/64 H 97 Exam (Neuro) Physical Exam: General Exam: GEN: NAD, lying in bed. HEENT: No conjunctival injection, no rhinorrhea. CV: RRR, no peripheral edema PULM: Nonlabored respirations on room air. Neuro Exam: MS: Awake, alert. Oriented only to self not place, situation or month/year. Paucity of speech makes testing of cognition and language difficult. No clear neglect. Unable to follow commands but will mimic. CN: Positive blink to threat bilaterally. Unable to visualize fundi on fundoscopic exam as patient would not keep her eyes open. PERRLA OU. EOMI without nystagmus on observed eye movements. Facial muscles full and symmetric. Hearing intact to conversation. Unable to assess tongue, uvular shoulder due to AMS/inability to follow commands. MOTOR: Normal bulk and tone. Able to move all extremities antigravity at least momentarily. REFLEXES: 2+ at biceps, triceps, brachioradialis, 2+ and brisk patella and 2+ Achilles bilaterally. No clonus. Flexor plantar responses bilaterally. SENSORY: Withdraws to noxious stimuli in all extremities COORDINATION: Unable to assess due to mental status GAIT: Deferred given mental status and fall risk. PG Care Time/CCT Total # of Minutes Spent Total Time Spent with Patient: Total time spent is greater than 50% in coordination of care (as documented) at patient's floor/unit and/or counseling patient: Coding Level of Care Code 83569 Subseq Hosp Care Lvl 3 Diagnoses Acute renal failure (ARF) N17.9 Acute renal failure type: unspecified AMS (altered mental status) R41.0 Altered mental status type: disorientation Cognitive and behavioral changes R41.89; R46.89 (1) Acute renal failure (ARF) Acute renal failure type: unspecified Qualified Code(s): N17.9 - Acute kidney failure, unspecified (2) AMS (altered mental status) Altered mental status type: disorientation Qualified Code(s): R41.0 - Diso rientation, unspecified
[2019-08-21 14:50] LABS: CSF Chemistry Tube # 1
[2019-08-21 14:52] LABS: CSF Glucose 48 mg/dl (40-70)
[2019-08-21 14:59] LABS: Lactate CSF 2.1 mmol/L (0.6-2.2)
--- NOTE | 2019-08-21 16:22 | Hospitalist Progress Note ---
Date of Service August 21, 2019 Assessment & Plan (1) Acute renal failure (ARF): Creat was 4.8 on admission, now 0.79 Resolved felt likely to be secondary to lithium medication renal ultrasound without acute abnormality urine analysis without active sediment. (2) AMS (altered mental status): Possible Toxic Vs. Metabolic encephalopathy Patient's Depakote level low on admission, urine tox screen negative linear opacity seen the base of her temporal skull on CT scan of the brain however MRI was without abnormality - artifact on the original image Hold Lizzie, dc Haldol and Ativan prn as discussed below Psychiatric consult - Does not feel there is a primary mood disorder. Patient has no history of psychiatric issues other than depression Work-up medical causes for encephalopathy including a sed rate wnl, KATIA pending, Lyme titer wnl, B12 elevated and RPR non reactive. Given her history of "neurodegenerative disorder" patient was started on Namenda 5 mg bid. She had been taken off of Aricept at the [facility] for concern that it was contributing to her agitation as this is a listed side effect Patient's reports that at baseline Ms. Addison is able to hold a conversation and is pretty functional, only had to stop driving 6 months ago. Her decline has been quite rapid starting about 10 days before her admission to [facility] and then admission to the [facility] which was immediately following admission here. She was in the care of a neurologist previous to this. Still awaiting records from her [facility] admission and her neurologist. Ammonia level wnl, pending anti-TPO antibodies, serum autoimmune encephalitis panel LP performed 08/20 - elevated protein - pending crypto, viral PCRs, CSF autoimmune encephalitis panel (prefer [facility] option if possible) - continue seroquel 25mg qhs, depakote discontinued - delirium precautions, lights on during day, lights off at night, frequent reorientation, up and out of bed during daylight hours, avoid opiates/benzos as possible - EEG tomorrow morning Neurology consulted, appreciate input (3) Abnormal EKG: Patient EKG on admission with sinus rhythm with diffuse T wave changes, no ischemic symptoms Troponin was normal (4) Hypertension: Intermittently hypertensive, but overall bps accepable (5) Dyslipidemia: continue home atorvastatin (6) Psychiatric disorder: As above (7) Hyponatremia: Resolved (8) Hypercalcemia: Mild - PTH is trending down to 145. May be secondary to lithium administration although per the literature, this is more common with longer term lithium use. Will continue to monitor for now. (9) Hypokalemia: Replaced (10) DVT prophylaxis: Enoxaparin Admission and Anticipated Discharge Date Admission Date: August 15, 2019 Subjective Ms. Addison is more awake today, can tell me her name but otherwise cannot hold a sensible conversation or follow commands. Physical Exam Physical Exam: General: no distress Eyes: normal inspection, PERLL Respiratory: chest non tender, clear to auscultation, normal breath sounds, no respiratory distress, no accessory muscle use Cardiac: regular rate and rhythm, no rub or gallop, no murmur, no edema, no jvd GI/: active bowel sounds, no abd pain or tenderness, soft, non distended Extremities: normal range of motion, normal strength, non tender Neuro/Psych: alert and disoriented, calm Skin: normal color, dry Results & Data Results & Data ([facility]) Vital Signs (Past 12 Hours) Vital Signs Temp Pulse Resp BP Pulse Ox 08/21/19 14:48 37.3 C 70 18 158/79 H 97 08/21/19 07:22 37.3 C 74 16 145/64 H 97 PG Care Time/CCT Total # of Minutes Spent Total Time Spent with Patient: Total time spent is greater than 50% in coordination of care (as documented) at patient's floor/unit and/or counseling patient: Coding Level of Care Code 89488 Subseq Hosp Care Lvl 3 Diagnoses Acute renal failure (ARF) N17.9 Acute renal failure type: unspecified AMS (altered mental status) R41.0 Altered mental status type: disorientation Abnormal EKG R94.31 Hypertension I10 Dyslipidemia E78.5 Psychiatric disorder F99 Hyponatremia E87.1 Hypercalcemia E83.52 Hypokalemia E87.6 DVT prophylaxis Z29.9 (1) Acute renal failure (ARF) Acute renal failure type: unspecified Qualified Code(s): N17.9 - Acute kidney failure, unspecified (2) AMS (altered mental status) Altered mental status type: disorientation Qualified Code(s): R41.0 - Disorientation, unspecified
[2019-08-21] MEDS: ATORVASTATIN 20 MG TAB PO SCH (19:55)
[2019-08-21] MEDS: QUETIAPINE FUMARATE 25 MG TABLET PO SCH (19:55)
[2019-08-22] MEDS: ENOXAPARIN INJ 40 MG/0.4 ML SYR SQ SCH (08:36)
[2019-08-22] MEDS: MEMANTINE HCL 5 MG TAB PO SCH ×2 (08:37→19:56)
[2019-08-22 08:59] LABS: Hematocrit (blood only) 32.7 % (37-47); Hemoglobin 11.3 g/dL (12.0-16.0); Mean Corpuscular Hgb Conc 34.6 g/dL (32-36); Mean Corpuscular Volume 92.6 fL (80-100); Mean Platelet Volume 10.8 fL (7.4-10.4); Platelet Count 151 K/uL (130-400); RDW Coefficient of Variation 13.6 % (11.5-14.5); RDW Standard Deviation 45.4 fL (36.4-46.3); Red Blood Count 3.53 M/uL (4.2-5.4); White Blood Count 5.43 K/uL (4.8-10.8)
[2019-08-22 09:35] LABS: Alanine Aminotransferase 41 U/L (12-78); Albumin Level 2.6 gm/dl (3.4-5.0); Aspartate Aminotransferase 31 U/L (15-37); BUN Creatinine Ratio 10.8 (10-20); Blood Urea Nitrogen 8 mg/dl (7-18); Calcium 9.5 mg/dl (8.5-10.1); Carbon Dioxide 28 mmol/L (21-32); Chloride 107 mmol/L (98-107); Est GFR (African American) 97.4; Est GFR (Non-African American) 84.1; Glucose 79 mg/dl (70-99); Magnesium 1.6 mg/dl (1.8-2.4); Phosphorus 1.9 mg/dl (2.5-4.9); Potassium 3.6 mmol/L (3.5-5.1); Sodium 141 mmol/L (136-145)
[2019-08-22 09:38] LABS: Albumin Globulin Ratio 0.9 (0.9-2); Alkaline Phosphatase 77 U/L (45-117); Bilirubin,Total 0.6 mg/dl (0.2-1); Globulin 2.9 gm/dl (2.5-4.0); Total Protein 5.5 gm/dl (6.4-8.2)
[2019-08-22 12:48] LABS: Microsomal Ab <1 IU/mL (<9); Thyroglobulin Antibodies <1 IU/mL (< or = 1)
--- NOTE | 2019-08-22 13:56 | Hospitalist Progress Note ---
Date of Service August 22, 2019 Assessment & Plan (1) Acute renal failure (ARF): Creat was 4.8 on admission, now 0.79 Resolved felt likely to be secondary to lithium medication renal ultrasound without acute abnormality urine analysis without active sediment. (2) AMS (altered mental status): Possible Toxic Vs. Metabolic encephalopathy Patient's Depakote level low on admission, urine tox screen negative linear opacity seen the base of her temporal skull on CT scan of the brain however MRI was without abnormality - artifact on the original image Hold Lizzie, dc Haldol and Ativan prn as discussed below Psychiatric consult - Does not feel there is a primary mood disorder. Patient has no history of psychiatric issues other than depression Work-up medical causes for encephalopathy including a sed rate wnl, KATIA pending, Lyme titer wnl, B12 elevated and RPR non reactive. Given her history of "neurodegenerative disorder" patient was started on Namenda 5 mg bid. She had been taken off of [place] [facility] concern that it was contributing to her agitation as this is a listed side effect Patient's reports that at baseline Ms. Addison is able to hold a conversation and is pretty functional, only had to stop driving 6 months ago. Her decline has been quite rapid starting about 10 days before her admission to [facility] and then [place] [facility] immediately following admission here. She was in the care of a neurologist previous to this. Still awaiting records from her [facility] admission and her neurologist. Ammonia level wnl, anti-TPO antibodies negative, serum autoimmune encephalitis panel pending LP performed 08/20 - elevated protein - pending crypto, viral PCRs, CSF autoimmune encephalitis panel - continue seroquel 25mg qhs, depakote discontinued - delirium precautions, lights on during day, lights off at night, frequent reorientation, up and out of bed during daylight hours, avoid opiates/benzos as possible - EEG 08/21 Neurology consulted, appreciate input (3) Abnormal EKG: Patient EKG on admission with sinus rhythm with diffuse T wave changes, no ischemic symptoms Troponin was normal (4) Hypertension: Intermittently hypertensive, but overall bps accepable (5) Dyslipidemia: continue home atorvastatin (6) Psychiatric disorder: As above (7) Hypercalcemia: Mild - PTH is trending down to 145. May be secondary to lithium administration although per the literature, this is more common with longer term lithium use. Will recheck PTH am as well as vitamin D level and a 24 hour urine excretion Calcium today corrects to 10.6 (8) Electrolyte abnormality: Hypophosphatemia and hypomagnesemia on labs Mag IV 1g x2, start kphos po qid Will also start Boost as patient's albumin is low. Per nursing, she is eating about half her tray (9) DVT prophylaxis: Enoxaparin Updated by phone Admission and Anticipated Discharge Date Admission Date: August 15, 2019 Subjective Ms. Addison continues to be very confused. She appears comfortable except she reports some left abdominal discomfort. She does not grimace or have any indication of pain when I press on her abdomen which is soft. Physical Exam Physical Exam: General: no distress Eyes: normal inspection, PERLL Respiratory: chest non tender, clear to auscultation, normal breath sounds, no respiratory distress, no accessory muscle use Cardiac: regular rate and rhythm, no rub or gallop, no murmur, no edema, no jvd GI/: active bowel sounds, no abd pain or tenderness, soft, non distended Extremities: normal range of motion, normal strength, non tender Neuro/Psych: alert and disoriented, calm Skin: normal color, dry Results & Data Results & Data ([facility]) Vital Signs (Past 12 Hours) Vital Signs Temp Pulse Resp BP Pulse Ox 08/22/19 07:12 36.7 C 67 17 146/79 H 95 PG Care Time/CCT Total # of Minutes Spent Total Time Spent with Patient: Total time spent is greater than 50% in coordination of care (as documented) at patient's floor/unit and/or counseling patient: Coding Level of Care Code 16429 Subseq Hosp Care Lvl 3 Diagnoses Acute renal failure (ARF) N17.9 Acute renal failure type: unspecified AMS (altered mental status) R41.0 Altered mental status type: disorientation Abnormal EKG R94.31 Hypertension I10 Dyslipidemia E78.5 Psychiatric disorder F99 Hypercalcemia E83.52 Electrolyte abnormality E87.8 DVT prophylaxis Z29.9 (1) Acute renal failure (ARF) Acute renal failure type: unspecified Qualified Code(s): N17.9 - Acute kidney failure, unspecified (2) AMS (altered mental status) Altered mental status type: disorientation Qualified Code(s): R41.0 - Disorientation, unspecified
[2019-08-22] MEDS: MAGNESIUM SULFATE / D5W 1 GM/100 ML BAG IV SCH ×2 (15:27→17:04)
--- NOTE | 2019-08-22 15:27 | Neurology Progress Note ---
Date of Service August 22, 2019 Assessment & Plan (1) Acute renal failure (ARF): (2) AMS (altered mental status): Marycruz Addison is a 63 yo woman w/ PMH of HLD, HTN, and possible psychiatric history on depakote/lithium who p/t [facility] on 08/15/19 in the setting of acute renal failure thought to be 2/2 lithium toxicity, neurology was consulted for persistent AMS. Work-up thus far: - Normal: B12 935, TSH WNL, ammonia less than 10, UA no infection, negative TPO antibodies - Abnormal: PTH elevated 249.1 -> 145.5 - Pending: thiamine, serum autoimmune encephalitis panel, KATIA screen - MRI brain: moderate generalized atrophy predominantly in the frontal temporal lobes with minimal small vessel disease; no cortical ribboning, tumor or midline malformation noted CSF studies: 0 WBCs, 0 RBCs, 66.3 protein, 48 glucose; viral PCR's, autoimmune encephalitis panel, CSF Lyme, MS panel, CSF VDRL pending # Persistent AMS in setting of underlying neurodegenerative disorder: could represent delirium on dementia. She is young for dementia, so would want to complete workup as below to ensure that there are no other causes for dementia. 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 - continue seroquel 25mg qhs, memantine 5mg bid; hold depakote, if mood becomes an issue, can transition seroquel to pimavanserin - delirium precautions, lights on during day, lights off at night, frequent reorientation, up and out of bed during daylight hours, avoid opiates/benzos as possible - agree with RADHIKA from [facility]/prior neurologist - EEG read pending - would also consider workup for possible primary hyperparathyroidism she did initially have hypercalcemia and elevated PTH (can prevent cognitive dysfunction, new or worsening mood disorder) - if no clear cause found, could consider trial of steroids while admitted - will need outpatient SPECT scan and formal neuropsych testing Review for this interesting consult. Plan of care discussed with primary team. Please call or text with questions. (3) Cognitive and behavioral changes: Admission and Anticipated Discharge Date Admission Date: August 15, 2019 Subjective NAEs overnight. Had LP performed yesterday afternoon. Results as below. Attempting to coloring coloring book this afternoon. Unable to follow any commands, oriented only to self, otherwise speech is often unrelated to the questions asked of her. Review of Systems Review of Systems: Unobtainable due to cognitive status Results & Data ([facility]) Vital Signs (Past 12 Hours) Vital Signs Temp Pulse Resp BP Pulse Ox 08/22/19 07:12 36.7 C 67 17 146/79 H 95 Exam (Neuro) Physical Exam: General Exam: GEN: NAD, lying in bed. HEENT: No conjunctival injection, no rhinorrhea. CV: RRR, no peripheral edema PULM: Nonlabored respirations on room air. Neuro Exam: MS: Awake, alert. Oriented only to self not place, situation or month/year. Paucity of speech makes testing of cognition and language difficult. No clear neglect. Unable to follow commands but will mimic. CN: Positive blink to threat bilaterally. Unable to visualize fundi on fun doscopic exam as patient would not keep her eyes open. PERRLA OU. EOMI without nystagmus on observed eye movements. Facial muscles full and symmetric. Hearing intact to conversation. Unable to assess tongue, uvular shoulder due to AMS/inability to follow commands. MOTOR: Normal bulk and tone. Able to move all extremities antigravity at least momentarily. REFLEXES: 2+ at biceps, triceps, brachioradialis, 2+ and brisk patella and 2+ Achilles bilaterally. No clonus. Flexor plantar responses bilaterally. SENSORY: Withdraws to noxious stimuli in all extremities COORDINATION: Unable to assess due to mental status GAIT: Deferred given mental status and fall risk. PG Care Time/CCT Total # of Minutes Spent Total Time Spent with Patient: Total time spent is greater than 50% in coordination of care (as documented) at patient's floor/unit and/or counseling patient: Coding Level of Care Code 59373 Subseq Hosp Care Lvl 3 Diagnoses Acute renal failure (ARF) N17.9 Acute renal failure type: unspecified AMS (altered mental status) R41.0 Altered mental status type: disorientation Cognitive and behavioral changes R41.89; R46.89 (1) Acute renal failure (ARF) Acute renal failure type: unspecified Qualified Code(s): N17.9 - Acute kidney failure, unspecified (2) AMS (altered mental status) Altered mental status type: disorientation Qualified Code(s): R41.0 - Disorientation, unspecified
--- NOTE | 2019-08-22 16:53 | Electroencephalogram ---
EEG Procedure Note Date of Service August 22, 2019 Start / End Times Start Time: 8:01am End Time: 8:21am Referring Physician Porsche Bowman History AMS, rapid dementia Home Medication List Home Medications Medication Instructions Recorded Confirmed Type atorvastatin 20 mg PO HS 08/15/19 08/15/19 History divalproex [Depakote] 500 mg PO BID 08/15/19 08/15/19 History risperidone [Risperdal] 1 mg PO BID 08/15/19 08/15/19 History risperidone [Risperdal] 2 mg PO HS 08/15/19 08/15/19 History Inpatient Medication List Atorvastatin Calcium (Lipitor) 20 mg PO [facility] Stop: 09/19/19 20:59 Last Admin: 08/21/19 19:55 Dose: 20 mg Documented by: [id number] Admin: 08/20/19 21:31 Dose: 20 mg Documented by: [id number] Enoxaparin Sodium (Lovenox) 40 mg SQ QAM [facility] Stop: 09/18/19 08:59 Last Admin: 08/22/19 08:36 Dose: Not Given Documented by: [id number] Admin: 08/20/19 09:50 Dose: 40 mg Documented by: [id number] Admin: 08/19/19 08:58 Dose: 40 mg Documented by: [id number] Magnesium Sulfate/Dextrose (Magnesium Sulfate / D5w) 1 gm in 100 mls @ 50 mls/hr IV Q2H [facility] Stop: 08/22/19 18:59 Last Admin: 08/22/19 15:27 Dose: 50 mls/hr Documented by: [id number] Memantine (Namenda) 5 mg PO BID [facility] Stop: 09/17/19 08:59 Last Admin: 08/22/19 08:37 Dose: 5 mg Documented by: [id number] Admin: 08/21/19 19:55 Dose: 5 mg Documented by: [id number] Admin: 08/21/19 08:49 Dose: 5 mg Documented by: [id number] Admin: 08/20/19 21:31 Dose: 5 mg Documented by: [id number] Admin: 08/20/19 09:50 Dose: 5 mg Documented by: [id number] Admin: 08/19/19 20:49 Dose: 5 mg Documented by: [id number] Admin: 08/19/19 08:58 Dose: 5 mg Documented by: [id number] Admin: 08/18/19 22:22 Dose: 5 mg Documented by: [id number] Admin: 08/18/19 09:37 Dose: 5 mg Documented by: [id number] Quetiapine Fumarate (Seroquel) 25 mg PO HS [facility] Stop: 09/19/19 20:59 Last Admin: 08/21/19 19:55 Dose: 25 mg Documented by: [id number] Admin: 08/20/19 21:32 Dose: 25 mg Documented by: [id number] Discontinued Medications Divalproex Sodium (Depakote Delay Release) 500 mg PO BID [facility] Stop: 09/14/19 20:59 Last Admin: 08/16/19 09:22 Dose: Not Given Documented by: [id number] Admin: 08/15/19 20:51 Dose: 500 mg Documented by: [id number] Enoxaparin Sodium (Lovenox) 40 mg SQ Q24H [facility] Stop: 09/14/19 19:03 Last Admin: 08/16/19 07:18 Dose: Not Given Documented by: [id number] Heparin Sodium (Porcine) (Heparin Sodium (Porcine)) 5,000 units SQ TID [facility] Stop: 09/14/19 20:59 Last Admin: 08/18/19 09:29 Dose: 5,000 units Documented by: [id number] Cosigned by: [id number] Admin: 08/17/19 21:47 Dose: 5,000 units Documented by: [id number] Cosigned by: [id number] Admin: 08/17/19 12:56 Dose: 5,000 units Documented by: [id number] Cosigned by: [id number] Admin: 08/17/19 08:40 Dose: 5,000 units Documented by: [id number] Cosigned by: [id number] Admin: 08/16/19 20:38 Dose: 5,000 units Documented by: [id number] Cosigned by: [id number] Admin: 08/16/19 14:29 Dose: 5,000 units Documented by: [id number] Cosigned by: [id number] Admin: 08/16/19 08:29 Dose: 5,000 units Documented by: [id number] Cosigned by: [id number] Admin: 08/15/19 20:50 Dose: 5,000 units Documented by: [id number] Cosigned by: [id number] Sodium Chloride (Nss 1000ml) 1,000 mls @ 999 mls/hr IV .Q1H1M [facility] Stop: 08/15/19 16:45 Last Infusion: 08/15/19 18:27 Dose: 0 mls/hr Documented by: [id number] Admin: 08/15/19 16:12 Dose: 999 mls/hr Documented by: [id number] Sodium Chloride (Nss 1000ml) 1,000 mls @ 125 mls/hr IV .Q8H [facility] Stop: 09/14/19 19:03 Last Infusion: 08/17/19 08:19 Dose: 0 mls/hr Documented by: [id number] Admin: 08/17/19 05:19 Dose: 125 mls/hr Documented by: [id number] Infusion: 08/17/19 04:38 Dose: 125 mls/hr Documented by: [id number] Admin: 08/16/19 20:38 Dose: 125 mls/hr Documented by: [id number] Infusion: 08/16/19 19:48 Dose: 125 mls/hr Documented by: [id number] Admin: 08/16/19 11:48 Dose: 125 mls/hr Documented by: [id number] Infusion: 08/16/19 10:37 Dose: 0 mls/hr Documented by: [id number] Admin: 08/16/19 02:46 Dose: 125 mls/hr Documented by: [id number] Infusion: 08/16/19 02:46 Dose: 125 mls/hr Documented by: [id number] Admin: 08/15/19 19:45 Dose: 125 mls/hr Documented by: [id number] Lorazepam (Ativan) 0.5 mg in 1 mls @ 1 mls/min IV Q4H PRN PRN Reason: Agitation Stop: 09/14/19 19:03 Last Admin: 08/19/19 12:11 Dose: 1 mls/min Documented by: [id number] Valproic Acid 500 mg/ Dextrose 55 mls @ 55 mls/hr IV BID [facility] Stop: 09/15/19 10:14 Last Infusion: 08/20/19 11:28 Dose: 0 mls/hr Documented by: [id number] Infusion: 08/20/19 10:30 Dose: 55 mls/hr Documented by: [id number] Infusion: 08/20/19 09:59 Dose: 0 mls/hr Documented by: [id number] Admin: 08/20/19 09:50 Dose: 55 mls/hr Documented by: [id number] Infusion: 08/19/19 22:03 Dose: 0 mls/hr Documented by: [id number] Admin: 08/19/19 20:49 Dose: 55 mls/hr Documented by: [id number] Infusion: 08/19/19 09:53 Dose: 0 mls/hr Documented by: [id number] Admin: 08/19/19 08:40 Dose: 55 mls/hr Documented by: [id number] Infusion: 08/19/19 00:11 Dose: 0 mls/hr Documented by: [id number] Admin: 08/18/19 22:22 Dose: 55 mls/hr Documented by: [id number] Infusion: 08/18/19 10:31 Dose: 0 mls/hr Documented by: [id number] Admin: 08/18/19 09:29 Dose: 55 mls/hr Documented by: [id number] Infusion: 08/17/19 23:36 Dose: 0 mls/hr Documented by: [id number] Admin: 08/17/19 21:47 Dose: 55 mls/hr Documented by: [id number] Infusion: 08/17/19 09:34 Dose: 0 mls/hr Documented by: [id number] Admin: 08/17/19 08:40 Dose: 55 mls/hr Documented by: [id number] Infusion: 08/16/19 21:50 Dose: 0 mls/hr Documented by: [id number] Admin: 08/16/19 20:38 Dose: 55 mls/hr Documented by: [id number] Infusion: 08/16/19 11:48 Dose: 0 mls/hr Documented by: [id number] Admin: 08/16/19 10:37 Dose: 55 mls/hr Documented by: [id number] Sodium Chloride (1/2 Nss) 1,000 mls @ 150 mls/hr IV .Q6H40M [facility] Stop: 09/16/19 08:14 Last Admin: 08/18/19 13:07 Dose: Not Given Documented by: [id number] Infusion: 08/18/19 13:07 Dose: 0 mls/hr Documented by: [id number] Admin: 08/18/19 06:08 Dose: 150 mls/hr Documented by: [id number] Infusion: 08/18/19 06:08 Dose: 150 mls/hr Documented by: [id number] Admin: 08/17/19 23:43 Dose: 150 mls/hr Documented by: [id number] Infusion: 08/17/19 22:56 Dose: 150 mls/hr Documented by: [id number] Infusion: 08/17/19 21:30 Dose: 150 mls/hr Documented by: [id number] Admin: 08/17/19 16:15 Dose: 150 mls/hr Documented by: [id number] Infusion: 08/17/19 14:28 Dose: 0 mls/hr Documented by: [id number] Admin: 08/17/19 08:39 Dose: 150 mls/hr Documented by: [id number] Potassium Chloride (K Omid / Wtr) 10 meq in 100 mls @ 100 mls/hr IV Q1H [facility] Stop: 08/18/19 13:59 Last Infusion: 08/18/19 14:27 Dose: 0 mls/hr Documented by: [id number] Admin: 08/18/19 13:03 Dose: 100 mls/hr Documented by: [id number] Infusion: 08/18/19 12:49 Dose: 100 mls/hr Documented by: [id number] Admin: 08/18/19 11:49 Dose: 100 mls/hr Documented by: [id number] Infusion: 08/18/19 11:49 Dose: 100 mls/hr Documented by: [id number] Admin: 08/18/19 10:52 Dose: 100 mls/hr Documented by: [id number] Lorazepam (Ativan) 0.5 mg in 1 mls @ 0.5 mls/min IV UD PRN PRN Reason: Agitation Stop: 08/21/19 18:00 Last Admin: 08/21/19 12:44 Dose: 0.5 mls/min Documented by: [id number] Potassium Chloride (Klor-Con M20) 20 meq PO BID [facility] Stop: 08/19/19 09:01 Last Admin: 08/18/19 12:01 Dose: Not Given Documented by: [id number] Potassium Chloride (Cristina Ciel Elix) 40 meq PO BID [facility] Stop: 08/19/19 22:00 Last Admin: 08/19/19 20:49 Dose: 40 meq Documented by: [id number] Admin: 08/19/19 09:53 Dose: 40 meq Documented by: [id number] Potassium Chloride (Cristina Ciel Elix) 40 meq PO NOW STA Stop: 08/21/19 09:51 Last Admin: 08/21/19 10:37 Dose: 40 meq Documented by: [id number] Risperidone (Risperdal) 1 mg PO BID@0900,1300 [facility] Stop: 09/16/19 08:59 Last Admin: 08/17/19 12:53 Dose: 1 mg Documented by: [id number] Admin: 08/17/19 08:44 Dose: 1 mg Documented by: [id number] Description This is a 21 electrode EEG with a single channel dedicated to limited EKG. The electrodes were placed in accordance with the International 10-20 system. History: AMS, rapid dementia Rx: n/a Start/Stop: 8:01am/8:21am Attending reading: Jane Rosales EEG Description: EEG background: Background was low voltage with 2-3 Hz delta with overriding muscle artifact. No well formed posterior dominant rhythm was observed. The EEG is continuous. There is variability, no clear reactivity present. Activation and reactivity: Photic stimulation performed without any abnormalities noted. No photic driving observed. Hyperventilation was not performed Sleep: Patient did not enter drowsiness or sleep during the study. Epileptiform discharges: No epileptiform discharges were observed. Rhythmic and periodic patterns: None Seizures: None Impression: This was an abnormal EEG given severe generalized slowing c/w severe toxic metabolic encephalopathy, dementia or global cerebral dysfunction. No seizures or epileptiform discharges were seen. [facility] EEG Procedure Codes Indication for Procedure (1) AMS (altered mental status): (2) Cognitive and behavioral changes: Neurology Neurology: [id number] EEG include record awake & drowsy
[2019-08-22] MEDS: POT PHOSPHATE MONOBASIC W/ SOD TAB PO SCH ×2 (16:54→19:56)
[2019-08-22] MEDS: ATORVASTATIN 20 MG TAB PO SCH (19:56)
[2019-08-22] MEDS: QUETIAPINE FUMARATE 25 MG TABLET PO SCH (19:56)
[2019-08-23 06:01] LABS: Hematocrit (blood only) 29.8 % (37-47); Hemoglobin 10.1 g/dL (12.0-16.0); Mean Corpuscular Hemoglobin 32.1 pg (25-34); Mean Corpuscular Hgb Conc 33.9 g/dL (32-36); Mean Corpuscular Volume 94.6 fL (80-100); Mean Platelet Volume 10.5 fL (7.4-10.4); Platelet Count 198 K/uL (130-400); RDW Coefficient of Variation 13.6 % (11.5-14.5); RDW Standard Deviation 47.1 fL (36.4-46.3); Red Blood Count 3.15 M/uL (4.2-5.4); White Blood Count 5.39 K/uL (4.8-10.8)
[2019-08-23 06:33] LABS: BUN Creatinine Ratio 11.8 (10-20); Blood Urea Nitrogen 9 mg/dl (7-18); Calcium 9.1 mg/dl (8.5-10.1); Carbon Dioxide 30 mmol/L (21-32); Chloride 108 mmol/L (98-107); Est GFR (Non-African American) 85.4; Glucose 101 mg/dl (70-99); Potassium 3.3 mmol/L (3.5-5.1); Sodium 143 mmol/L (136-145)
[2019-08-23] MEDS: ENOXAPARIN INJ 40 MG/0.4 ML SYR SQ SCH (08:28)
[2019-08-23] MEDS: POT PHOSPHATE MONOBASIC W/ SOD TAB PO SCH ×4 (08:29→21:27)
[2019-08-23] MEDS: MEMANTINE HCL 5 MG TAB PO SCH ×2 (08:29→21:27)
[2019-08-23] MEDS ORDERED: POTASSIUM CHLORIDE 20 MEQ/15 ML UDC PO STA (08:50)
--- NOTE | 2019-08-23 16:33 | Hospitalist Progress Note ---
Date of Service August 23, 2019 Assessment & Plan (1) Acute renal failure (ARF): Creat was 4.8 on admission, now wnl Resolved felt likely to be secondary to lithium medication renal ultrasound without acute abnormality urine analysis without active sediment. (2) AMS (altered mental status): Possible Toxic Vs. Metabolic encephalopathy Patient's Depakote level low on admission, urine tox screen negative linear opacity seen the base of her temporal skull on CT scan of the brain however MRI was without abnormality - artifact on the original image Hold Risperdal, dc Haldol and Ativan prn as discussed below Psychiatric consult - Does not feel there is a primary mood disorder. Patient has no history of psychiatric issues other than depression Work-up medical causes for encephalopathy including a sed rate wnl, KATIA pending, Lyme titer wnl, B12 elevated and RPR non reactive. Given her history of "neurodegenerative disorder" patient was started on Namenda 5 mg bid. She had been taken off of Aricept at the [facility] for concern that it was contributing to her agitation as this is a listed side effect Patient's reports that at baseline Ms. Addison is able to hold a conversation and is pretty functional, only had to stop driving 6 months ago. Her decline has been quite rapid starting about 10 days before her admission to [facility] and then admission to the [facility] which was immediately following admission here. She was in the care of a neurologist previous to this. Still awaiting records from her [facility] admission and her neurologist. Ammonia level wnl, anti-TPO antibodies negative, serum autoimmune encephalitis panel pending LP performed 08/20 - elevated protein - pending crypto, viral PCRs, CSF autoimmune encephalitis panel - continue seroquel 25mg qhs, depakote discontinued - delirium precautions, lights on during day, lights off at night, frequent reorientation, up and out of bed during daylight hours, avoid opiates/benzos as possible - EEG 08/21 Neurology consulted, appreciate input (3) Abnormal EKG: Patient EKG on admission with sinus rhythm with diffuse T wave changes, no ischemic symptoms Troponin was normal (4) Hypertension: Intermittently hypertensive, but overall bps accepable (5) Dyslipidemia: continue home atorvastatin (6) Psychiatric disorder: As above (7) Hypercalcemia: Mild - PTH elevated. May be secondary to lithium administration although per the literature, this is more common with longer term lithium use. Will recheck PTH am as well as vitamin D level and a 24 hour urine excretion Calcium wnl today (8) Electrolyte abnormality: Hypophosphatemia and hypomagnesemia on labs 08/21 - replaced Hypokalemia today, replaced Continue Boost as patient's albumin is low. (9) Anemia: Normocytic Hgb 10, not far from baseline, will continue to monitor. No s/s of bleeding (10) DVT prophylaxis: Enoxaparin Attempted to update over by phone, left message Admission and Anticipated Discharge Date Admission Date: August 15, 2019 Subjective Ms. Addison continues to be alert and confused. Unable to participate in ROS Physical Exam Physical Exam: General: no distress Eyes: normal inspection, PERLL Respiratory: chest non tender, clear to auscultation, normal breath sounds, no respiratory distress, no accessory muscle use Cardiac: regular rate and rhythm, no rub or gallop, no murmur, no edema, no jvd GI/: active bowel sounds, no abd pain or tenderness, soft, non distended Extremities: normal range of motion, normal strength, non tender Neuro/Psych: alert and oriented x 3, normal mood and affect Skin: normal color, dry Results & Data Results & Data ([facility]) Vital Signs (Past 12 Hours) Vital Signs Temp Pulse Resp BP Pulse Ox 08/23/19 15:25 37.4 C 89 18 133/72 99 08/23/19 11:48 36.7 C 74 16 138/80 97 PG Care Time/CCT Total # of Minutes Spent Total Time Spent with Patient: Total time spent is greater than 50% in coordination of care (as documented) at patient's floor/unit and/or counseling patient: Coding Level of Care Code 58685 Subseq Hosp Care Lvl 2 Diagnoses Acute renal failure (ARF) N17.9 Acute renal failure type: unspecified AMS (altered mental status) R41.0 Altered mental status type: disorientation Abnormal EKG R94.31 Hypertension I10 Dyslipidemia E78.5 Psychiatric disorder F99 Hypercalcemia E83.52 Electrolyte abnormality E87.8 Anemia D64.9 DVT prophylaxis Z29.9 (1) Acute renal failure (ARF) Acute renal failure type: unspecified Qualified Code(s): N17.9 - Acute kidney failure, unspecified (2) AMS (altered mental status) Altered mental status type: disorientation Qualified Code(s): R41.0 - Disorientation, unspecified
[2019-08-23 19:47] LABS: Calcium 24 Hour Urine 214.2 mg/24 hr (42-353); Urine Calcium 15.3 mg/dl
[2019-08-23] MEDS: ATORVASTATIN 20 MG TAB PO SCH (21:27)
[2019-08-23] MEDS: QUETIAPINE FUMARATE 25 MG TABLET PO SCH (21:27)
[2019-08-24 07:42] LABS: Hematocrit (blood only) 29.8 % (37-47); Hemoglobin 10.3 g/dL (12.0-16.0); Mean Corpuscular Hemoglobin 32.5 pg (25-34); Mean Corpuscular Hgb Conc 34.6 g/dL (32-36); Mean Platelet Volume 10.2 fL (7.4-10.4); Platelet Count 223 K/uL (130-400); RDW Coefficient of Variation 13.7 % (11.5-14.5); RDW Standard Deviation 47.4 fL (36.4-46.3); Red Blood Count 3.17 M/uL (4.2-5.4); White Blood Count 7.64 K/uL (4.8-10.8)
[2019-08-24 08:13] LABS: Alanine Aminotransferase 32 U/L (12-78); Albumin Level 2.6 gm/dl (3.4-5.0); Aspartate Aminotransferase 18 U/L (15-37); Blood Urea Nitrogen 9 mg/dl (7-18); Calcium 9.4 mg/dl (8.5-10.1); Carbon Dioxide 29 mmol/L (21-32); Chloride 108 mmol/L (98-107); Est GFR (African American) 82.8; Est GFR (Non-African American) 71.4; Glucose 101 mg/dl (70-99); Magnesium 1.7 mg/dl (1.8-2.4); Potassium 4.2 mmol/L (3.5-5.1); Sodium 142 mmol/L (136-145)
[2019-08-24 08:18] LABS: Albumin Globulin Ratio 0.8 (0.9-2); Alkaline Phosphatase 72 U/L (45-117); Bilirubin,Total 0.5 mg/dl (0.2-1); Globulin 3.1 gm/dl (2.5-4.0); Total Protein 5.7 gm/dl (6.4-8.2)
[2019-08-24] MEDS: ENOXAPARIN INJ 40 MG/0.4 ML SYR SQ SCH (09:16)
[2019-08-24] MEDS: MEMANTINE HCL 5 MG TAB PO SCH ×2 (09:16→19:52)
[2019-08-24] MEDS: POT PHOSPHATE MONOBASIC W/ SOD TAB PO SCH ×4 (09:16→19:53)
[2019-08-24] MEDS: MAGNESIUM OXIDE 400 MG TAB PO SCH ×2 (09:19→19:53)
--- NOTE | 2019-08-24 13:15 | Neurology Progress Note ---
Date of Service August 24, 2019 Assessment & Plan (1) AMS (altered mental status): Marycruz Addison is a 63 yo woman w/ PMH of HLD, HTN, and possible psychiatric history on depakote/lithium who p/t [facility] on 08/15/19 in the setting of acute renal failure thought to be 2/2 lithium toxicity, neurology was consulted for persistent AMS. Work-up thus far: - Normal: B12 935, TSH WNL, ammonia less than 10, UA no infection, negative TPO antibodies - Abnormal: PTH elevated 249.1 -> 145.5 - Pending: thiamine, serum autoimmune encephalitis panel, KATIA screen - MRI brain: moderate generalized atrophy predominantly in the frontal temporal lobes with minimal small vessel disease; no cortical ribboning, tumor or midline malformation noted - EEG: Severe generalized slowing consistent with toxic metabolic encephalopathy, dementia or global cerebral dysfunction. CSF studies: 0 WBCs, 0 RBCs, 66.3 protein, 48 glucose; viral PCR's, autoimmune encephalitis panel, CSF Lyme, MS panel, CSF VDRL pending # Persistent AMS in setting of underlying neurodegenerative disorder: could r epresent delirium on dementia. She is young for dementia, so would want to complete workup as below to ensure that there are no other causes for dementia. 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 - continue seroquel 25mg qhs, memantine 5mg bid; hold depakote, if mood becomes an issue, can transition seroquel to pimavanserin - delirium precautions, lights on during day, lights off at night, frequent reorientation, up and out of bed during daylight hours, avoid opiates/benzos as possible - agree with RADHIKA from [facility]/prior neurologist - will need outpatient SPECT scan and formal neuropsych testing - inpatient neurology workup complete at this time/pending results of above testing Review for this interesting consult. Plan of care discussed with primary team. Please call or text with questions. (2) Cognitive and behavioral changes: Admission and Anticipated Discharge Date Admission Date: August 15, 2019 Subjective NAEs overnight. She was much more alert and interactive today with examiner. She is able to hold a conversation and at least initially follow commands and answer questions appropriately. Within a few minutes out, she was no longer as attentive and started to talk to what she called a man standing in the corner of the window. Review of Systems Review of Systems: Unobtainable due to cognitive status Results & Data ([facility]) Vital Signs (Past 12 Hours) Vital Signs Temp Pulse Resp BP BP Pulse Ox 08/24/19 07:19 36.9 C 63 18 124/77 95 08/24/19 04:58 36.7 C 62 18 136/77 98 Exam (Neuro) Physical Exam: General Exam: GEN: NAD, lying in bed. HEENT: No conjunctival injection, no rhinorrhea. CV: RRR, no peripheral edema PULM: Nonlabored respirations on room air. Neuro Exam: MS: Awake, alert. Oriented only to self not place, situation or month/year. Paucity of speech makes testing of cognition and language difficult. No clear neglect. Unable to follow commands but will mimic. CN: Positive blink to threat bilaterally. Unable to visualize fundi on fundoscopic exam as patient would not keep her eyes open. PERRLA OU. EOMI without nystagmus on observed eye movements. Facial muscles full and symmetric. Hearing intact to conversation. Tongue midline. Shoulder shrug normal. Unable to assess uvula due to AMS. MOTOR: Normal bulk and tone. Able to move all extremities antigravity at least momentarily. REFLEXES: 2+ at biceps, triceps, brachioradialis, 2+ and brisk patella and 2+ Achilles bilaterally. No clonus. Flexor plantar responses bilaterally. SENSORY: Withdraws to noxious stimuli in all extremities COORDINATION: Unable to assess due to mental status GAIT: Deferred given mental status and fall risk. PG Care Time/CCT Total # of Minutes Spent Total Time Spent with Patient: Total time spent is greater than 50% in coordination of care (as documented) at patient's floor/unit and/or counseling patient: Coding Level of Care Code 31869 Subseq Hosp Care Lvl 3 Diagnoses AMS (altered mental status) R41.0 Altered mental status type: disorientation Cognitive and behavioral changes R41.89; R46.89 (1) AMS (altered mental status) Altered mental status type: disorientation Qualified Code(s): R41.0 - Disorientation, unspecified
[2019-08-24 14:33] LABS: Anti Nuclear Antibody Screen NEGATIVE (NEGATIVE)
--- NOTE | 2019-08-24 18:35 | Hospitalist Progress Note ---
Date of Service August 24, 2019 Assessment & Plan (1) Acute renal failure (ARF): Creat was 4.8 on admission, now wnl Resolved felt likely to be secondary to lithium medication renal ultrasound without acute abnormality urine analysis without active sediment. (2) AMS (altered mental status): Possible Toxic Vs. Metabolic encephalopathy Patient's Depakote level low on admission, urine tox screen negative linear opacity seen the base of her temporal skull on CT scan of the brain however MRI was without abnormality - artifact on the original image Hold Devondasierra, dc Haldol and Ativan prn as discussed below Psychiatric consult - Does not feel there is a primary mood disorder. Patient has no history of psychiatric issues other than depression Work-up medical causes for encephalopathy including a sed rate wnl, KATIA pending, Lyme titer wnl, B12 elevated and RPR non reactive. Given her history of "neurodegenerative disorder" patient was started on Namenda 5 mg bid. She had been taken off of Aricept at the [facility] for concern that it was contributing to her agitation as this is a listed side effect Patient's reports that at baseline Ms. Addison is able to hold a conversation and is pretty functional, only had to stop driving 6 months ago. Her decline has been quite rapid starting about 10 days before her admission to [facility] and then admission to the [facility] which was immediately following admission here. She was in the care of a neurologist previous to this. Still awaiting records from her [facility] admission and her neurologist. Ammonia level wnl, anti-TPO antibodies negative, serum autoimmune encephalitis panel pending LP performed 08/20 - elevated protein - pending crypto, viral PCRs, CSF autoimmune encephalitis panel - continue seroquel 25mg qhs, depakote discontinued - delirium precautions, lights on during day, lights off at night, frequent reorientation, up and out of bed during daylight hours, avoid opiates/benzos as possible - EEG 08/21 - will need outpatient SPECT scan and formal neuropsych testing Neurology consulted, appreciate input (3) Abnormal EKG: Patient EKG on admission with sinus rhythm with diffuse T wave changes, no ischemic symptoms Troponin was normal (4) Hypertension: Intermittently hypertensive, but overall bps accepable (5) Dyslipidemia: continue home atorvastatin (6) Psychiatric disorder: As above (7) Hypercalcemia: Mild - PTH elevated. May be secondary to lithium administration although per the literature, this is more common with longer term lithium use. Calcium wnl to minimally elevated Vitamin D level low normal 24 hour urine excretion normal, will defer further workup to outpatient as definitive treatment for PHPT is surgery (8) Electrolyte abnormality: Magnesium replaced, Kphos replacements Continue Boost as patient's albumin is low. (9) Anemia: Normocytic Hgb 10, not far from baseline, will continue to monitor. No s/s of bleeding (10) DVT prophylaxis: Enoxaparin Admission and Anticipated Discharge Date Admission Date: August 15, 2019 Subjective Ms. Addison continues to be confused and unable to participate in ROS though she denies pain. Physical Exam Physical Exam: General: no distress Eyes: normal inspection, PERLL Respiratory: chest non tender, clear to auscultation, normal breath sounds, no respiratory distress, no accessory muscle use Cardiac: regular rate and rhythm, no rub or gallop, no murmur, no edema, no jvd GI/: active bowel sounds, no abd pain or tenderness, soft, non distended Extremities: normal range of motion, normal strength, non tender Neuro/Psych: alert and oriented to self, normal mood and affect Skin: normal color, dry Results & Data Results & Data ([facility]) Vital Signs (Past 12 Hours) Vital Signs Temp Pulse Resp BP Pulse Ox 08/24/19 15:42 37.0 C 90 18 133/73 97 08/24/19 07:19 36.9 C 63 18 124/77 95 PG Care Time/CCT Total # of Minutes Spent Total Time Spent with Patient: Total time spent is greater than 50% in coordination of care (as documented) at patient's floor/unit and/or counseling patient: Coding Level of Care Code 91418 Subseq Hosp Care Lvl 2 Diagnoses Acute renal failure (ARF) N17.9 Acute renal failure type: unspecified AMS (altered mental status) R41.0 Altered mental status type: disorientation Abnormal EKG R94.31 Hypertension I10 Dyslipidemia E78.5 Psychiatric disorder F99 Hypercalcemia E83.52 Electrolyte abnormality E87.8 Anemia D64.9 DVT prophylaxis Z29.9 (1) Acute renal failure (ARF) Acute renal failure type: unspecified Qualified Code(s): N17.9 - Acute kidney failure, unspecified (2) AMS (altered mental status) Altered mental status type: disorientation Qualified Code(s): R41.0 - Di sorientation, unspecified
[2019-08-24] MEDS: ATORVASTATIN 20 MG TAB PO SCH (19:52)
[2019-08-24] MEDS: QUETIAPINE FUMARATE 25 MG TABLET PO SCH (19:53)
[2019-08-25 06:18] LABS: Hematocrit (blood only) 31.6 % (37-47); Hemoglobin 10.5 g/dL (12.0-16.0); Mean Corpuscular Hemoglobin 31.8 pg (25-34); Mean Corpuscular Hgb Conc 33.2 g/dL (32-36); Mean Corpuscular Volume 95.8 fL (80-100); Mean Platelet Volume 10.1 fL (7.4-10.4); Platelet Count 289 K/uL (130-400); RDW Coefficient of Variation 13.4 % (11.5-14.5); RDW Standard Deviation 46.5 fL (36.4-46.3); White Blood Count 8.36 K/uL (4.8-10.8)
[2019-08-25 07:02] LABS: BUN Creatinine Ratio 11.6 (10-20); Blood Urea Nitrogen 10 mg/dl (7-18); Calcium 9.4 mg/dl (8.5-10.1); Carbon Dioxide 26 mmol/L (21-32); Chloride 107 mmol/L (98-107); Est GFR (African American) 83.9; Est GFR (Non-African American) 72.4; Glucose 118 mg/dl (70-99); Magnesium 1.6 mg/dl (1.8-2.4); Phosphorus 3.4 mg/dl (2.5-4.9); Potassium 3.4 mmol/L (3.5-5.1); Sodium 141 mmol/L (136-145)
[2019-08-25] MEDS: ENOXAPARIN INJ 40 MG/0.4 ML SYR SQ SCH (08:15)
[2019-08-25] MEDS: MAGNESIUM OXIDE 400 MG TAB PO SCH ×2 (08:16→21:24)
[2019-08-25] MEDS: MEMANTINE HCL 5 MG TAB PO SCH ×2 (08:16→21:24)
[2019-08-25] MEDS: POT PHOSPHATE MONOBASIC W/ SOD TAB PO SCH ×4 (08:16→21:24)
[2019-08-25] MEDS ORDERED: MAGNESIUM SULFATE / D5W 1 GM/100 ML BAG IV ONE ×2 (09:15→11:15)
[2019-08-25] MEDS ORDERED: POTASSIUM CHLORIDE 20 MEQ/15 ML UDC PO ONE (09:15)
--- NOTE | 2019-08-25 11:08 | Hospitalist Progress Note ---
Date of Service August 25, 2019 Assessment & Plan (1) Acute renal failure (ARF): Creat was 4.8 on admission, now wnl Resolved felt likely to be secondary to lithium medication renal ultrasound without acute abnormality urine analysis without active sediment. (2) AMS (altered mental status): Possible Toxic Vs. Metabolic encephalopathy Patient's Depakote level low on admission, urine tox screen negative linear opacity seen the base of her temporal skull on CT scan of the brain however MRI was without abnormality - artifact on the original image Hold Risperdal, dc Haldol and Ativan prn as discussed below Psychiatric consult - Does not feel there is a primary mood disorder. Patient has no history of psychiatric issues other than depression Work-up medical causes for encephalopathy including a sed rate wnl, KATIA pending, Lyme titer wnl, B12 elevated and RPR non reactive. Given her history of "neurodegenerative disorder" patient was started on Namenda 5 mg bid. She had been taken off of Aricept at the [facility] for concern that it was contributing to her agitation as this is a listed side effect Patient's reports that at baseline Ms. Addison is able to hold a conversation and is pretty functional, only had to stop driving 6 months ago. Her decline has been quite rapid starting about 10 days before her admission to [facility] and then admission to the [facility] which was immediately following admission here. She was in the care of a neurologist previous to this. Still awaiting records from her [facility] admission and her neurologist. Ammonia level wnl, anti-TPO antibodies negative, serum autoimmune encephalitis panel pending LP performed 08/20 - elevated protein - pending crypto, viral PCRs, CSF autoimmune encephalitis panel - depakote discontinued - delirium precautions, lights on during day, lights off at night, frequent reorientation, up and out of bed during daylight hours, avoid opiates/benzos as possible - EEG 08/21 - will need outpatient SPECT scan and formal neuropsych testing Neurology consulted, appreciate input Will increase seroquel to 25 mg bid as patient continues to be quite restless and at times agitated. Will have to be careful she is not too sleepy during the day. Could consider making the seroquel 50 mg at night to see if it helps with the day time without making her sleepy. Neurology recommended pimavanserin but we do not carry this medication on formulary here (3) Abnormal EKG: Patient EKG on admission with sinus rhythm with diffuse T wave changes, no ischemic symptoms Troponin was normal (4) Hypertension: Intermittently hypertensive, but overall bps accepable (5) Dyslipidemia: continue home atorvastatin (6) Psychiatric disorder: As above (7) Hypercalcemia: Mild - PTH elevated. May be secondary to lithium administration although per the literature, this is more common with longer term lithium use. Calcium wnl to minimally elevated Vitamin D level low normal 24 hour urine excretion normal, will defer further workup to outpatient as definitive treatment for PHPT is surgery (8) Electrolyte abnormality: Magnesium replaced, Kphos replacements, potassium replaced Continue Boost as patient's albumin is low. (9) Anemia: Normocytic Hgb 10, not far from baseline, will continue to monitor. No s/s of bleeding (10) DVT prophylaxis: Enoxaparin Admission and Anticipated Discharge Date Admission Date: August 15, 2019 Subjective Ms. Addison continues to be confused. Able to tell me her name and that she is not in pain. updated by phone Physical Exam Physical Exam: General: no distress Eyes: normal inspection, PERLL Respiratory: chest non tender, clear to auscultation, normal breath sounds, no respiratory distress, no accessory muscle use Cardiac: regular rate and rhythm, no rub or gallop, no murmur, no edema, no jvd GI/: active bowel sounds, no abd pain or tenderness, soft, non distended Extremities: normal range of motion, normal strength, non tender Neuro/Psych: alert and oriented x 3, normal mood and affect Skin: normal color, dry Results & Data Results & Data ([facility]) Vital Signs (Past 12 Hours) Vital Signs Temp Pulse Resp BP Pulse Ox 08/25/19 06:36 37.0 C 76 18 153/80 H 95 08/24/19 23:16 37.3 C 67 16 147/82 H 97 PG Care Time/CCT Total # of Minutes Spent Total Time Spent with Patient: Total time spent is greater than 50% in coordination of care (as documented) at patient's floor/unit and/or counseling patient: Coding Level of Care Code 01246 Subseq Hosp Care Lvl 2 Diagnoses Acute renal failure (ARF) N17.9 Acute renal failure type: unspecified AMS (altered mental status) R41.0 Altered mental status type: disorientation Abnormal EKG R94.31 Hypertension I10 Dyslipidemia E78.5 Psychiatric disorder F99 Hypercalcemia E83.52 Electrolyte abnormality E87.8 Anemia D64.9 DVT prophylaxis Z29.9 (1) Acute renal failure (ARF) Acute renal failure type: unspecified Qualified Code(s): N17.9 - Acute kidney failure, unspecified (2) AMS (altered mental status) Altered mental status type: disorientation Qualified Code(s): R41.0 - Disorientation, unspecified
[2019-08-25] MEDS: QUETIAPINE FUMARATE 25 MG TABLET PO SCH ×2 (12:01→21:25)
[2019-08-25] MEDS: ATORVASTATIN 20 MG TAB PO SCH (21:23)
[2019-08-26 09:08] LABS: BUN Creatinine Ratio 12.9 (10-20); Blood Urea Nitrogen 12 mg/dl (7-18); Calcium 9.3 mg/dl (8.5-10.1); Carbon Dioxide 27 mmol/L (21-32); Chloride 110 mmol/L (98-107); Est GFR (African American) 78.4; Est GFR (Non-African American) 67.6; Glucose 95 mg/dl (70-99); Sodium 143 mmol/L (136-145)
[2019-08-26 09:55] LABS: Enterovirus RNA by PCR Not Detected (Not Detected)
[2019-08-26 10:57] LABS: CMV DNA Qnt Real Time PCR <200 IU/mL (<200); CMV DNA Quant PCR <2.30 log IU/mL (<2.30)
[2019-08-26] MEDS: ENOXAPARIN INJ 40 MG/0.4 ML SYR SQ SCH (11:05)
[2019-08-26] MEDS: POT PHOSPHATE MONOBASIC W/ SOD TAB PO SCH ×4 (11:06→21:15)
[2019-08-26] MEDS: MAGNESIUM OXIDE 400 MG TAB PO SCH ×2 (11:06→21:15)
[2019-08-26] MEDS: MEMANTINE HCL 5 MG TAB PO SCH ×2 (11:06→21:16)
[2019-08-26 12:35] LABS: HSV Type 1 DNA Not Detected (Not Detected); HSV Type 1&2 DNA Source CSF; HSV Type 2 DNA Not Detected (Not Detected)
[2019-08-26 15:57] LABS: Herpes Virus 6 (DNA) Not Detected (Not Detected); Herpes Virus 6 (DNA) Source CSF; VZ DNA Source CSF; Varicella Zoster Virus DNA PCR Not Detected (Not Detected)
[2019-08-26] MEDS: QUETIAPINE FUMARATE 25 MG TABLET PO SCH ×2 (18:07→20:20)
[2019-08-26] MEDS: ATORVASTATIN 20 MG TAB PO SCH (21:14)
--- NOTE | 2019-08-26 21:30 | Hospitalist Progress Note ---
Date of Service August 26, 2019 Assessment & Plan (1) Acute renal failure (ARF): Creat was 4.8 on admission, now wnl Resolved felt likely to be secondary to lithium medication renal ultrasound without acute abnormality urine analysis without active sediment. (2) AMS (altered mental status): Possible Toxic Vs. Metabolic encephalopathy Patient's Depakote level low on admission, urine tox screen negative linear opacity seen the base of her temporal skull on CT scan of the brain however MRI was without abnormality - artifact on the original image Hold Risperdal, dc Haldol and Ativan prn as discussed below Psychiatric consult - Does not feel there is a primary mood disorder. Patient has no history of psychiatric issues other than depression Work-up medical causes for encephalopathy including a sed rate wnl, KATIA pending, Lyme titer wnl, B12 elevated and RPR non reactive. Given her history of "neurodegenerative disorder" patient was started on Namenda 5 mg bid. She had been taken off of Aricept at the [facility] for concern that it was contributing to her agitation as this is a listed side effect Patient's reports that at baseline Ms. Addison is able to hold a conversation and is pretty functional, only had to stop driving 6 months ago. Her decline has been quite rapid starting about 10 days before her admission to [facility] and then admission to the [facility] which was immediately following admission here. She was in the care of a neurologist previous to this. Still awaiting records from her [facility] admission and her neurologist. Ammonia level wnl, anti-TPO antibodies negative, serum autoimmune encephalitis panel pending LP performed 08/20 - elevated protein - pending crypto, viral PCRs, CSF autoimmune encephalitis panel - depakote discontinued - delirium precautions, lights on during day, lights off at night, frequent reorientation, up and out of bed during daylight hours, avoid opiates/benzos as possible - EEG 08/21 - will need outpatient SPECT scan and formal neuropsych testing Neurology consulted, appreciate input It appears her 50 mg dose of seroquel made her too sleepy. will try to decrease it tto 25 mg. Gave one dose of 25 mg in afternoon as patient became more agitated. May consider repeat dose in PM if patient needs it. (3) Abnormal EKG: Patient EKG on admission with sinus rhythm with diffuse T wave changes, no ischemic symptoms Troponin was normal (4) Hypertension: Intermittently hypertensive, but overall bps accepable (5) Dyslipidemia: continue home atorvastatin (6) Psychiatric disorder: As above (7) Hypercalcemia: Mild - PTH elevated. May be secondary to lithium administration although per the literature, this is more common with longer term lithium use. Calcium wnl to minimally elevated Vitamin D level low normal 24 hour urine excretion normal, will defer further workup to outpatient as definitive treatment for PHPT is surgery (8) Electrolyte abnormality: Magnesium replaced, Kphos replacements, potassium replaced Continue Boost as patient's albumin is low. (9) Anemia: Normocytic Hgb 10, not far from baseline, will continue to monitor. No s/s of bleeding (10) DVT prophylaxis: Enoxaparin Admission and Anticipated Discharge Date Admission Date: August 15, 2019 Subjective 63 yo female is very sleeping. She awakens with verbal stimuli but goes back to sleep. D/W nurse, appears patient had 2 doses of seroquel yesterday. Review of Systems Review of Systems: Unobtainable due to cognitive status Physical Exam Physical Exam: General: no distress Eyes: normal inspection, PERLL Respiratory: chest non tender, clear to auscultation, normal breath sounds, no respiratory distress, no accessory muscle use Cardiac: regular rate and rhythm, no rub or gallop, no murmur, no edema, no jvd GI/: active bowel sounds, no abd pain or tenderness, soft, non distended Extremities: normal range of motion, normal strength, non tender Neuro/Psych: drowsy. Skin: normal color, dry Results & Data Results & Data ([facility]) Vital Signs (Past 12 Hours) Vital Signs Temp Pulse Resp BP Pulse Ox 08/26/19 15:39 36.9 C 69 20 134/75 98 PG Care Time/CCT Total # of Minutes Spent Total Time Spent with Patient: Total time spent is greater than 50% in coordination of care (as documented) at patient's floor/unit and/or counseling patient: Coding Level of Care Code 84416 Subseq Hosp Care Lvl 3 Diagnoses Acute renal failure (ARF) N17.9 Acute renal failure type: unspecified AMS (altered mental status) R41.0 Altered mental status type: disorientation Abnormal EKG R94.31 Hypertension I10 Dyslipidemia E78.5 Psychiatric disorder F99 Hypercalcemia E83.52 Electrolyte abnormality E87.8 Anemia D64.9 DVT prophylaxis Z29.9 Time Spent (min) 35 (1) Acute renal failure (ARF) Acute renal failure type: unspecified Qualified Code(s): N17.9 - Acute kidney failure, unspecified (2) AMS (altered mental status) Altered mental status type: disorientation Qualified Code(s): R41.0 - Disorientation, unspecified
[2019-08-27 06:43] LABS: Est GFR (African American) 87.6; Est GFR (Non-African American) 75.6
[2019-08-27] MEDS: ENOXAPARIN INJ 40 MG/0.4 ML SYR SQ SCH (08:59)
[2019-08-27] MEDS: MEMANTINE HCL 5 MG TAB PO SCH ×2 (09:00→21:33)
[2019-08-27] MEDS: MAGNESIUM OXIDE 400 MG TAB PO SCH ×2 (09:00→21:33)
[2019-08-27] MEDS: POT PHOSPHATE MONOBASIC W/ SOD TAB PO SCH ×4 (09:00→21:34)
[2019-08-27 18:40] LABS: Lyme DNA PCR CSF or Synovial Not detected (Not Detected); Lyme DNA Source CSF; VDRL Qualitative CSF Nonreactive (Nonreactive)
--- NOTE | 2019-08-27 21:18 | Hospitalist Progress Note ---
Date of Service August 27, 2019 Assessment & Plan (1) Acute renal failure (ARF): Creat was 4.8 on admission, now wnl Resolved felt likely to be secondary to lithium medication renal ultrasound without acute abnormality urine analysis without active sediment. (2) AMS (altered mental status): Possible Toxic Vs. Metabolic encephalopathy Patient's Depakote level low on admission, urine tox screen negative linear opacity seen the base of her temporal skull on CT scan of the brain however MRI was without abnormality - artifact on the original image Hold Risperdal, dc Haldol and Ativan prn as discussed below Psychiatric consult - Does not feel there is a primary mood disorder. Patient has no history of psychiatric issues other than depression Work-up medical causes for encephalopathy including a sed rate wnl, KATIA pending, Lyme titer wnl, B12 elevated and RPR non reactive. Given her history of "neurodegenerative disorder" patient was started on Namenda 5 mg bid. She had been taken off of Aricept at the [facility] for concern that it was contributing to her agitation as this is a listed side effect Patient's reports that at baseline Ms. Addison is able to hold a conversation and is pretty functional, only had to stop driving 6 months ago. Her decline has been quite rapid starting about 10 days before her admission to [facility] and then admission to the [facility] which was immediately following admission here. She was in the care of a neurologist previous to this. Still awaiting records from her [facility] admission and her neurologist. Ammonia level wnl, anti-TPO antibodies negative, serum autoimmune encephalitis panel pending LP performed 08/20 - elevated protein - pending crypto, viral PCRs, CSF autoimmune encephalitis panel - depakote discontinued - delirium precautions, lights on during day, lights off at night, frequent reorientation, up and out of bed during daylight hours, avoid opiates/benzos as possible - EEG 08/21 - will need outpatient SPECT scan and formal neuropsych testing Neurology consulted, appreciate input Patient did not sleep with only 25 mg of seroquel. Will increase it again to 50 mg but instead of BID will order it HS. this should hlp her day night cycle. Patient will likely be discharged in AM.. (3) Abnormal EKG: Patient EKG on admission with sinus rhythm with diffuse T wave changes, no ischemic symptoms Troponin was normal (4) Hypertension: Intermittently hypertensive, but overall bps accepable (5) Dyslipidemia: continue home atorvastatin (6) Psychiatric disorder: As above (7) Hypercalcemia: Mild - PTH elevated. May be secondary to lithium administration although per the literature, this is more common with longer term lithium use. Calcium wnl to minimally elevated Vitamin D level low normal 24 hour urine excretion normal, will defer further workup to outpatient as definitive treatment for PHPT is surgery (8) Electrolyte abnormality: Magnesium replaced, Kphos replacements, potassium replaced Continue Boost as patient's albumin is low. (9) Anemia: Normocytic Hgb 10, not far from baseline, will continue to monitor. No s/s of bleeding (10) DVT prophylaxis: Enoxaparin Admission and Anticipated Discharge Date Admission Date: August 15, 2019 Subjective Patient was confused overnight. She only had about 2 hours of sleep. Patient this morning is calm, and is aware she is in the hospital. She has no new complaints. Review of Systems Review of Systems: All systems reviewed & are unremarkable except as noted in HPI & below Physical Exam Physical Exam: General: no distress Eyes: normal inspection, PERLL Respiratory: chest non tender, clear to auscultation, normal breath sounds, no respiratory distress, no accessory muscle use Cardiac: regular rate and rhythm, no rub or gallop, no murmur, no edema, no jvd GI/: active bowel sounds, no abd pain or tenderness, soft, non distended Extremities: normal range of motion, normal strength, non tender Neuro/Psych: drowsy. Skin: normal color, dry Results & Data Results & Data ([facility]) Vital Signs (Past 12 Hours) Vital Signs Temp Pulse Resp BP Pulse Ox 08/27/19 15:20 36.9 C 82 16 144/77 H 96 PG Care Time/CCT Total # of Minutes Spent Total Time Spent with Patient: Total time spent is greater than 50% in coordination of care (as documented) at patient's floor/unit and/or counseling patient: Coding Level of Care Code 94178 Subseq Hosp Care Lvl 2 Diagnoses Acute renal failure (ARF) N17.9 Acute renal failure type: unspecified AMS (altered mental status) R41.0 Altered mental status type: disorientation Abnormal EKG R94.31 Hypertension I10 Dyslipidemia E78.5 Psychiatric disorder F99 Hypercalcemia E83.52 Electrolyte abnormality E87.8 Anemia D64.9 DVT prophylaxis Z29.9 Time Spent (min) 25 (1) Acute renal failure (ARF) Acute renal failure type: unspecified Qualified Code(s): N17.9 - Acute kidney failure, unspecified (2) AMS (altered mental status) Altered mental status type: disorientation Qualified Code(s): R41.0 - Disorie ntation, unspecified
[2019-08-27] MEDS: ATORVASTATIN 20 MG TAB PO SCH (21:33)
[2019-08-27] MEDS: QUETIAPINE FUMARATE 25 MG TABLET PO SCH (21:34)
[2019-08-28] MEDS: MEMANTINE HCL 5 MG TAB PO SCH ×2 (08:51→20:19)
[2019-08-28] MEDS: MAGNESIUM OXIDE 400 MG TAB PO SCH ×2 (08:51→20:19)
[2019-08-28] MEDS: ENOXAPARIN INJ 40 MG/0.4 ML SYR SQ SCH (08:51)
[2019-08-28] MEDS: POT PHOSPHATE MONOBASIC W/ SOD TAB PO SCH ×4 (08:52→20:20)
[2019-08-28] MEDS: ATORVASTATIN 20 MG TAB PO SCH (20:19)
[2019-08-28] MEDS: QUETIAPINE FUMARATE 25 MG TABLET PO SCH (20:19)
--- NOTE | 2019-08-28 22:12 | Hospitalist Progress Note ---
Date of Service August 28, 2019 Assessment & Plan (1) Acute renal failure (ARF): Creat was 4.8 on admission, now wnl Resolved felt likely to be secondary to lithium medication renal ultrasound without acute abnormality urine analysis without active sediment. (2) AMS (altered mental status): Possible Toxic Vs. Metabolic encephalopathy Patient's Depakote level low on admission, urine tox screen negative linear opacity seen the base of her temporal skull on CT scan of the brain however MRI was without abnormality - artifact on the original image Hold Risperdal, dc Haldol and Ativan prn as discussed below Psychiatric consult - Does not feel there is a primary mood disorder. Patient has no history of psychiatric issues other than depression Work-up medical causes for encephalopathy including a sed rate wnl, KATIA pending, Lyme titer wnl, B12 elevated and RPR non reactive. Given her history of "neurodegenerative disorder" patient was started on Namenda 5 mg bid. She had been taken off of Aricept at the [facility] for concern that it was contributing to her agitation as this is a listed side effect Patient's reports that at baseline Ms. Addison is able to hold a conversation and is pretty functional, only had to stop driving 6 months ago. Her decline has been quite rapid starting about 10 days before her admission to [facility] and then admission to the [facility] which was immediately following admission here. She was in the care of a neurologist previous to this. Still awaiting records from her [facility] admission and her neurologist. Ammonia level wnl, anti-TPO antibodies negative, serum autoimmune encephalitis panel pending LP performed 08/20 - elevated protein - pending crypto, viral PCRs, CSF autoimmune encephalitis panel - depakote discontinued - delirium precautions, lights on during day, lights off at night, frequent reorientation, up and out of bed during daylight hours, avoid opiates/benzos as possible - EEG 08/21 - will need outpatient SPECT scan and formal neuropsych testing Neurology consulted, appreciate input Patient appears to be tolerating the seroquel 50 mg PO PM. (3) Abnormal EKG: Patient EKG on admission with sinus rhythm with diffuse T wave changes, no ischemic symptoms Troponin was normal (4) Hypertension: Intermittently hypertensive, but overall bps accepable (5) Dyslipidemia: continue home atorvastatin (6) Psychiatric disorder: As above (7) Hypercalcemia: Mild - PTH elevated. May be secondary to lithium administration although per the literature, this is more common with longer term lithium use. Calcium wnl to minimally elevated Vitamin D level low normal 24 hour urine excretion normal, will defer further workup to outpatient as definitive treatment for PHPT is surgery (8) Electrolyte abnormality: Magnesium replaced, Kphos replacements, potassium replaced Continue Boost as patient's albumin is low. (9) Anemia: Normocytic Hgb 10, not far from baseline, will continue to monitor. No s/s of bleeding (10) DVT prophylaxis: Enoxaparin She requires 2 negative COVID tests prior to discharge. Admission and Anticipated Discharge Date Admission Date: August 15, 2019 Subjective Patient reports no new symptoms today. Did not appear to be very anxious. Review of Systems Review of Systems: All systems reviewed & are unremarkable except as noted in HPI & below Physical Exam Physical Exam: General: no distress Eyes: normal inspection, PERLL Respiratory: chest non tender, clear to auscultation, normal breath sounds, no respiratory distress, no accessory muscle use Cardiac: regular rate and rhythm, no rub or gallop, no murmur, no edema, no jvd GI/: active bowel sounds, no abd pain or tenderness, soft, non distended Extremities: normal range of motion, normal strength, non tender Neuro/Psych: drowsy. Skin: normal color, dry Results & Data Results & Data ([facility]) Vital Signs (Past 12 Hours) Vital Signs Temp Pulse Resp BP Pulse Ox 08/28/19 15:28 37.2 C 80 18 131/73 98 PG Care Time/CCT Total # of Minutes Spent Total Time Spent with Patient: Total time spent is greater than 50% in coordination of care (as documented) at patient's floor/unit and/or counseling patient: Coding Level of Care Code 41109 Subseq Hosp Care Lvl 2 Diagnoses Acute renal failure (ARF) N17.9 Acute renal failure type: unspecified AMS (altered mental status) R41.0 Altered mental status type: disorientation Abnormal EKG R94.31 Hypertension I10 Dyslipidemia E78.5 Psychiatric disorder F99 Hypercalcemia E83.52 Electrolyte abnormality E87.8 Anemia D64.9 DVT prophylaxis Z29.9 (1) Acute renal failure (ARF) Acute renal failure type: unspecified Qualified Code(s): N17.9 - Acute kidney failure, unspecified (2) AMS (altered mental status) Altered mental status type: disorientation Qualified Code(s): R41.0 - Disorientation, unspecified
[2019-08-29] MEDS: ENOXAPARIN INJ 40 MG/0.4 ML SYR SQ SCH (08:35)
[2019-08-29] MEDS: MAGNESIUM OXIDE 400 MG TAB PO SCH ×2 (08:35→22:13)
[2019-08-29] MEDS: MEMANTINE HCL 5 MG TAB PO SCH ×2 (08:35→22:13)
[2019-08-29] MEDS: POT PHOSPHATE MONOBASIC W/ SOD TAB PO SCH ×4 (08:35→22:13)
[2019-08-29] MEDS: QUETIAPINE FUMARATE 25 MG TABLET PO SCH (22:13)
[2019-08-29] MEDS: ATORVASTATIN 20 MG TAB PO SCH (22:13)
--- NOTE | 2019-08-29 22:29 | Hospitalist Progress Note ---
Date of Service August 29, 2019 Assessment & Plan (1) Acute renal failure (ARF): Creat was 4.8 on admission, now wnl Resolved felt likely to be secondary to lithium medication renal ultrasound without acute abnormality urine analysis without active sediment. (2) AMS (altered mental status): Possible Toxic Vs. Metabolic encephalopathy Patient's Depakote level low on admission, urine tox screen negative linear opacity seen the base of her temporal skull on CT scan of the brain however MRI was without abnormality - artifact on the original image Hold Risperdal, dc Haldol and Ativan prn as discussed below Psychiatric consult - Does not feel there is a primary mood disorder. Patient has no history of psychiatric issues other than depression Work-up medical causes for encephalopathy including a sed rate wnl, KATIA pending, Lyme titer wnl, B12 elevated and RPR non reactive. Given her history of "neurodegenerative disorder" patient was started on Namenda 5 mg bid. She had been taken off of Aricept at the [facility] for concern that it was contributing to her agitation as this is a listed side effect Patient's reports that at baseline Ms. Addison is able to hold a conversation and is pretty functional, only had to stop driving 6 months ago. Her decline has been quite rapid starting about 10 days before her admission to [facility] and then admission to the [facility] which was immediately following admission here. She was in the care of a neurologist previous to this. Still awaiting records from her [facility] admission and her neurologist. Ammonia level wnl, anti-TPO antibodies negative, serum autoimmune encephalitis panel pending LP performed 08/20 - elevated protein - pending crypto, viral PCRs, CSF autoimmune encephalitis panel - depakote discontinued - delirium precautions, lights on during day, lights off at night, frequent reorientation, up and out of bed during daylight hours, avoid opiates/benzos as possible - EEG 08/21 - will need outpatient SPECT scan and formal neuropsych testing Neurology consulted, appreciate input Patient appears to be tolerating the seroquel 50 mg PO PM. Patient will be discharged to a dementia unit in AM if covid test is negative (3) Abnormal EKG: Patient EKG on admission with sinus rhythm with diffuse T wave changes, no ischemic symptoms Troponin was normal (4) Hypertension: Intermittently hypertensive, but overall bps accepable (5) Dyslipidemia: continue home atorvastatin (6) Psychiatric disorder: As above (7) Hypercalcemia: Mild - PTH elevated. May be secondary to lithium administration although per the literature, this is more common with longer term lithium use. Calcium wnl to minimally elevated Vitamin D level low normal 24 hour urine excretion normal, will defer further workup to outpatient as definitive treatment for PHPT is surgery (8) Electrolyte abnormality: Magnesium replaced, Kphos replacements, potassium replaced Continue Boost as patient's albumin is low. (9) Anemia: Normocytic Hgb 10, not far from baseline, will continue to monitor. No s/s of bleeding (10) DVT prophylaxis: Enoxaparin She requires 2 negative COVID tests prior to discharge. Admission and Anticipated Discharge Date Admission Date: August 15, 2019 Subjective 63 yo female reports feeling well. She has no new complaints. Review of Systems Review of Systems: All systems reviewed & are unremarkable except as noted in HPI & below Physical Exam Physical Exam: General: no distress Eyes: normal inspection, PERLL Respiratory: chest non tender, clear to auscultation, normal breath sounds, no respiratory distress, no accessory muscle use Cardiac: regular rate and rhythm, no rub or gallop, no murmur, no edema, no jvd GI/: active bowel sounds, no abd pain or tenderness, soft, non distended Extremities: normal range of motion, normal strength, non tender Neuro/Psych: awake. Skin: normal color, dry Results & Data Results & Data ([facility]) Vital Signs (Past 12 Hours) Vital Signs Temp Pulse Resp BP Pulse Ox 08/29/19 15:35 36.7 C 85 18 147/81 H 94 PG Care Time/CCT Total # of Minutes Spent Total Time Spent with Patient: Total time spent is greater than 50% in coordination of care (as documented) at patient's floor/unit and/or counseling patient: Coding Level of Care Code 17054 Subseq Hosp Care Lvl 2 Diagnoses Acute renal failure (ARF) N17.9 Acute renal failure type: unspecified AMS (altered mental status) R41.0 Altered mental status type: disorientation Abnormal EKG R94.31 Hypertension I10 Dyslipidemia E78.5 Psychiatric disorder F99 Hypercalcemia E83.52 Electrolyte abnormality E87.8 Anemia D64.9 DVT prophylaxis Z29.9 Time Spent (min) 25 (1) Acute renal failure (ARF) Acute renal failure type: unspecified Qualified Code(s): N17.9 - Acute kidney failure, unspecified (2) AMS (altered mental status) Altered mental status type: disorientation Qualified Code(s): R41.0 - Disorientation, unspecified
[2019-08-30 07:02] LABS: Est GFR (African American) 81.6; Est GFR (Non-African American) 70.4
[2019-08-30] MEDS: ENOXAPARIN INJ 40 MG/0.4 ML SYR SQ SCH (09:30)
[2019-08-30] MEDS: MEMANTINE HCL 5 MG TAB PO SCH (09:31)
[2019-08-30] MEDS: MAGNESIUM OXIDE 400 MG TAB PO SCH (09:31)
[2019-08-30] MEDS: POT PHOSPHATE MONOBASIC W/ SOD TAB PO SCH ×2 (09:32→12:39)
[2019-08-30 11:10] LABS: Potassium 3.5 mmol/L (3.5-5.1)
[2019-08-30 11:16] LABS: Phosphorus 3.4 mg/dl (2.5-4.9)
[2019-09-04 06:40] LABS: Albumin 3.3 g/dL (3.2-4.6); Albumin, CSF 35.1 mg/dL (8.0-42.0); EBV DNA Quant PCR <200 copies/mL (<200); EBV DNA Quant Source CSF; EBV DNA, Quant Log <2.30 Log cps/mL (<2.30); IgG Index, CSF 0.65 (<0.66); IgG Serum 580 mg/dL (600-1540); Lyme IgG Band Pattern CSF DNR; Lyme IgG CSF NO BANDS DETECTED; Lyme IgM Band Pattern CSF DNR; Lyme IgM CSF NO BANDS DETECTED; Myelin Basic Protein <2.0 mcg/L (2.0-4.0); Synthesis Rate, IgG CSF 4.3 mg/24 h (-9.9-3.3)
--- NOTE | 2019-09-05 22:53 | Discharge Summary ---
Date of Service August 30, 2019 Admission HPI Per Admitting Provider This is a 63-year-old female who was discharged to [facility] to our facility with altered sensorium and acute renal failure. We have very little records on this patient she is not oriented to place she cannot tell us where she lives. Or according to records from the [facility] and was taking Risperdal, Depakote and atorvastatin. She does have a psych history as well as history of hypertension and dyslipidemia. Patient was recommended for admission for encephalopathy and acute renal failure. Her valproic acid level on admission was low, there does not appear to be a talk screen sent On evaluation in the ER the patient currently tell me she is from [facility] she cannot tell me her age or birthday she denies having her children's names she did not supply any information about her past health history Principal Diagnosis altered mental status Discharge Exam General: no distress Eyes: normal inspection, PERLL Respiratory: chest non tender, clear to auscultation, normal breath sounds, no respiratory distress, no accessory muscle use Cardiac: regular rate and rhythm, no rub or gallop, no murmur, no edema, no jvd GI/: active bowel sounds, no abd pain or tenderness, soft, non distended Extremities: normal range of motion, normal strength, non tender Neuro/Psych: awake. Skin: normal color, dry Discharge Data Allergies Allergy/AdvReac Type Severity Reaction Status Date / Time RED DYE Allergy Unknown Uncoded 08/15/19 16:48 Consultations 08/15/19 17:14 ED Decision to Admit Stat 08/16/19 10:14 Consult Psychiatry Routine 08/19/19 12:26 Consult Health Information Management Routine 08/20/19 15:01 Consult Health Information Management Routine 08/20/19 15:26 Consult Neurology Routine Ordered Studies 08/15/19 16:52 CT head/brain wo con Stat 08/16/19 02:00 MR brain wo con Routine 08/16/19 08:00 US renal/blad retro comp Routine 08/21/19 08:00 FL lumbar puncture diagnostic Routine Hospital Course (1) Acute renal failure (ARF): Creat was 4.8 on admission, now wnl Resolved felt likely to be secondary to lithium medication renal ultrasound without acute abnormality urine analysis without active sediment. (2) AMS (altered mental status): Possible Toxic Vs. Metabolic encephalopathy Patient's Depakote level low on admission, urine tox screen negative linear opacity seen the base of her temporal skull on CT scan of the brain however MRI was without abnormality - artifact on the original image Hold ned Samuel Haldol and Ativan prn as discussed below Psychiatric consult - Does not feel there is a primary mood disorder. Patient has no history of psychiatric issues other than depression Work-up medical causes for encephalopathy including a sed rate wnl, KATIA pending, Lyme titer wnl, B12 elevated and RPR non reactive. Given her history of "neurodegenerative disorder" patient was started on Namenda 5 mg bid. She had been taken off of Aricept at the [facility] for concern that it was contributing to her agitation as this is a listed side effect Patient's reports that at baseline Ms. Addison is able to hold a conversation and is pretty functional, only had to stop driving 6 months ago. Her decline has been quite rapid starting about 10 days before her admission to [facility] and then admission to the [facility] which was immediately following admission here. She was in the care of a neurologist previous to this. Still awaiting records from her [facility] admission and her neurologist. Ammonia level wnl, anti-TPO antibodies negative, serum autoimmune encephalitis panel pending LP performed 08/20 - elevated protein - pending crypto, viral PCRs, CSF autoimmune encephalitis panel - depakote discontinued - delirium precautions, lights on during day, lights off at night, frequent reorientation, up and out of bed during daylight hours, avoid opiates/benzos as possible - EEG 08/21 - will need outpatient SPECT scan and formal neuropsych testing Neurology consulted, appreciate input Patient appears to be tolerating the seroquel 50 mg PO PM. Patient will be discharged to a dementia unit (3) Abnormal EKG: Patient EKG on admission with sinus rhythm with diffuse T wave changes, no ischemic symptoms Troponin was normal (4) Hypertension: Intermittently hypertensive, but overall bps accepable (5) Dyslipidemia: continue home atorvastatin (6) Psychiatric disorder: As above (7) Hypercalcemia: Mild - PTH elevated. May be secondary to lithium administration although per the literature, this is more common with longer term lithium use. Calcium wnl to minimally elevated Vitamin D level low normal 24 hour urine excretion normal, will defer further workup to outpatient as definitive treatment for PHPT is surgery (8) Electrolyte abnormality: Magnesium replaced, Kphos replacements, potassium replaced Continue Boost as patient's albumin is low. (9) Anemia: Normocytic Hgb 10, not far from baseline, will continue to monitor. No s/s of bleeding (10) DVT prophylaxis: Enoxaparin She requires 2 negative COVID tests prior to discharge. Total Time Total Time Spent Total Time Spent (In Minutes): 32 Total Time Includes: Examination of the Patient, Discharge Planning and Medication Reconciliation Discharge Plan Discharge Items Patient Disposition: Personal Halfway Reason For Visit: ACUTE RENAL FAILURE,ENCEPHALOPATHY Discharge Diagnosis: Acute renal failure/ encephalopathy Activity: Resume your previous activity Non-emergency contact: Primary Care Provider Call non-emergency contact if: you have any medication questions Follow-up/Referrals: Pooja Acevedo MD [Primary Care Provider] - Diet: Regular Addtl Attending Provider Instructions: Patient was found to have dementia. will be transferred to personal care dementia unit. PT/OT eval at facility. She has been ambulating well here. Pending Studies at Discharge: No Stand-Alone Forms: My [facility] [place], Smoking Cessation Skilled Items Patient informed of condition?: Yes DNR: No Discharge Level of Care: Other Communicable Disease: No Discharge Prognosis: Stable Lines: None Urinary Catheter: No Medications and DC Order Prescriptions: New quetiapine 25 mg Tablet 50 mg PO PM Qty: 60 RF: 0 acetaminophen 325 mg Tablet 650 mg PO Q4H PRN (Reason: pain) Qty: 30 RF: 0 memantine [Namenda] 5 mg Tablet 5 mg PO BID Qty: 60 RF: 0 Continued atorvastatin 20 mg Tablet 20 mg PO HS Qty: 30 RF: 0 Discontinued divalproex [Depakote] 500 mg Tablet,Delayed Release (Dr/Ec) 500 mg PO BID RF: 0 risperidone [Risperdal] 2 mg Tablet 2 mg PO HS RF: 0 risperidone [Risperdal] 1 mg Tablet 1 mg PO BID RF: 0 Discharge Orders: Discharge Order (Routine); Ordered 08/30/19 Ordered By: Jamar Reyes Admission Data Admit Date/Time: 08/15/19 17:41 Attending Provider: Jamar Reyes Admit Provider: Jose Ramos Primary Care Provider: Pooja Acevedo Other Providers: Tawanda Melendrez Timothy H ; Soila Mcclain ; Allan Salas ; Jose Pink ; Timmy Dominguez ; Victorina Lock ; Sean Nagy ; Elizabeth Vasquez ; Jenny Colón ; Sherin Bowles ; Ana Laura Barker ; Nithin Cam I. ; Michell Joshua ; Abi Dickinson ; Annelise Colin ; John Ceballos ; Jane Rosales Other Interventions: Discharge Summary Assessment (RN) Last Done: 08/30/19 11:21 DC Date/Time DO NOT enter until pt leaves facility: 08/30/19 15:55 Coding Level of Care Code D/C Day Management >30 mins Diagnoses Acute renal failure (ARF) N17.9 Acute renal failure type: unspecified AMS (altered mental status) R41.0 Altered mental status type: disorientation Abnormal EKG R94.31 Hypertension I10 Dyslipidemia E78.5 Psychiatric disorder F99 Hypercalcemia E83.52 Electrolyte abnormality E87.8 Anemia D64.9 DVT prophylaxis Z29.9 Time Spent (min) 32
== END 2019-08-30 15:55 | disposition home or self-care (01) | DRG 682 ==
LOC: ED 15:14 → 2S 17:41 → SUATTDRO 17:41 → 2S 18:37 → 3N 08-16 13:15